=== PATIENT | male | born 1945 | race African-American/Black ===

== ENCOUNTER 2016-11-17 03:36 | Emergency (ER) | payer MEDICARE, OTHER ==
[2016-11-17] MEDS ORDERED: IPRATROPIUM 0.5 MG/2.5 ML NEBU INHALATION STA (04:00)
[2016-11-17] MEDS ORDERED: IPRATROPIUM-ALBUTEROL 3 ML NEB INHALATION STA (04:03)
[2016-11-17 04:12] LABS: Anisocytosis Slight; Basophils # (A) 0.1 k/uL (0-0.2); Basophils % (A) 1 %; CH 31.2; CHCM 30.9; Eosinophils # (A) 0.3 k/uL (0-0.7); Eosinophils % (A) 4 %; HDW 2.71; HGB 14.3 gm/dL (13.0-17.5); Hypochromasia Moderate; Luc # (Auto) 0.18; Luc % (Auto) 2; Lymphocytes # (A) 1.4 k/uL (1.0-4.8); Lymphocytes % (A) 15 %; MCH 30.3 pg (25.0-35.0); MCHC 29.7 g/dL (31.0-37.0); MCV 102.1 fL (80.0-100.0); Macrocytosis Moderate; Mean Platelet Volume 8.1; Monocytes # (A) 0.5 k/uL (0-1.0); Monocytes % (A) 5 %; Neutrophils # (A) 6.8 k/uL (1.3-7.7); Neutrophils % (A) 74 %; RDW 17.3 % (11.5-15.5); WBC 9.2 k/uL (3.8-10.6); WBC (Perox) 9.35
[2016-11-17 04:22] LABS: Calcium 8.9 mg/dL (8.4-10.2); Potassium 5.4 mmol/L (3.5-5.1); Total Bilirubin 0.5 mg/dL (0.2-1.3); Total Protein 6.3 g/dL (6.3-8.2)
[2016-11-17 04:39] LABS: INR 1.3 (<1.2); Partial Thromboplastin Time 23.4 sec (22.0-30.0); Prothrombin Time 12.8 sec (9.0-12.0)
--- NOTE | 2016-11-17 04:58 | XR ---
EXAM: XR Chest, 2 Views CLINICAL HISTORY: Reason: difficulty breathing TECHNIQUE: Frontal and lateral views of the chest. COMPARISON: 12/28/15 FINDINGS: Lungs: Suspect minimal airspace opacities in both lungs, suggest pulmonary edema. Pleural space: Unremarkable. No pneumothorax. Heart: Suspect pulmonary artery hypertension.. No cardiomegaly. Left pacer is again noted. Mediastinum: Unremarkable. Bones/joints: Unremarkable. IMPRESSION: 1. Suspect minimal airspace opacities in both lungs, suggest pulmonary edema. 2. Suspect pulmonary artery hypertension.
[2016-11-17 05:02] LABS: Creatine Kinase MB 12.9 ng/mL (0.0-2.4); Troponin I 0.119 ng/mL (0.000-0.034)
[2016-11-17 05:03] VITALS: RESP 18
[2016-11-17] MEDS ORDERED: FUROSEMIDE 10 MG/ML 10 ML VIAL IV STA (05:12)
[2016-11-17] MEDS ORDERED: SPIRONOLACTONE 25 MG TAB PO STA (05:12)
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
[2016-11-17 06:30] VITALS: BP 155/92; PULSE 72
[2016-11-17] MEDS ORDERED: SODIUM POLYSTYRENE SULFONATE 15 GM/60 ML BOTTLE PO STA (06:34)
[2016-11-17 06:49] VITALS: TEMP 97.6
== END 2016-11-17 06:48 | disposition home or self-care (01) ==
LOC: EC 03:36
DX: I13.0 Hypertensive heart and chronic kidney disease with heart failure and stage 1 through stage 4 chronic kidney disease, or unspecified chronic kidney disease (principal); I50.9 Heart failure, unspecified; N18.3 Chronic kidney disease, stage 3 (moderate); E87.5 Hyperkalemia; R05 Cough; I48.91 Unspecified atrial fibrillation; I25.2 Old myocardial infarction; E03.9 Hypothyroidism, unspecified; F17.200 Nicotine dependence, unspecified, uncomplicated; Z82.49 Family history of ischemic heart disease and other diseases of the circulatory system; Z95.810 Presence of automatic (implantable) cardiac defibrillator; Z79.84 Long term (current) use of oral hypoglycemic drugs; Z79.899 Other long term (current) drug therapy
CPT/HCPCS: 36415; 94640; 93005; 83880; 80053; 82550; 82553; 84484; 85025; 85610; 85730; 71020; 99285; 96374; J1940

== ENCOUNTER 2016-11-20 07:15 | Inpatient (IN) | payer MEDICARE, OTHER ==
[2016-11-20] MEDS ORDERED: methylPREDNISolone SOD SUCCI 125 MG/2 ML VIAL IV STA (07:41)
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
[2016-11-20 07:55] LABS: Anisocytosis Slight; Basophils # (A) 0.1 k/uL (0-0.2); Basophils % (A) 1 %; CH 31.1; CHCM 29.8; Eosinophils # (A) 0.3 k/uL (0-0.7); Eosinophils % (A) 4 %; HCT 45.5 % (39.0-53.0); HDW 2.79; HGB 13.3 gm/dL (13.0-17.5); Hypochromasia Marked; Luc # (Auto) 0.17; Luc % (Auto) 2; Lymphocytes # (A) 1.2 k/uL (1.0-4.8); Lymphocytes % (A) 17 %; MCH 30.7 pg (25.0-35.0); MCHC 29.1 g/dL (31.0-37.0); MCV 105.5 fL (80.0-100.0); Macrocytosis Moderate; Mean Platelet Volume 8.2; Monocytes # (A) 0.4 k/uL (0-1.0); Monocytes % (A) 6 %; Neutrophils # (A) 5.4 k/uL (1.3-7.7); Neutrophils % (A) 72 %; RBC 4.31 m/uL (4.30-5.90); RDW 17.3 % (11.5-15.5); WBC 7.6 k/uL (3.8-10.6); WBC (Perox) 7.81
[2016-11-20 08:07] LABS: Calcium 8.6 mg/dL (8.4-10.2); Magnesium 1.7 mg/dL (1.6-2.3); Total Bilirubin 0.4 mg/dL (0.2-1.3); Total Protein 5.9 g/dL (6.3-8.2)
--- NOTE | 2016-11-20 08:09 | XR ---
EXAMINATION TYPE: XR chest 2V DATE OF EXAM: 11/20/2016 COMPARISON: 11/17/2016. HISTORY: Shortness of breath TECHNIQUE: Frontal and lateral views of the chest are obtained. FINDINGS: Patchy airspace disease is seen bilaterally with a gradient effect predominating centrally . Cardiomegaly and left-sided dual lead cardiac device are redemonstrated. No pleural effusions or pn eumothorax. IMPRESSION: Similar appearing patchy bibasilar opacities with findings suggestive of underlying pulm onary edema, similar to the prior.
[2016-11-20 08:10] LABS: INR 1.3 (<1.2); Partial Thromboplastin Time 24.5 sec (22.0-30.0); Prothrombin Time 12.7 sec (9.0-12.0)
[2016-11-20 08:16] LABS: Potassium 6.2 mmol/L (3.5-5.1)
[2016-11-20 08:39] LABS: Creatine Kinase MB 10.4 ng/mL (0.0-2.4); Troponin I 0.077 ng/mL (0.000-0.034)
[2016-11-20] MEDS ORDERED: SODIUM POLYSTYRENE SULFONATE 15 GM/60 ML BOTTLE PO ONE (10:47)
[2016-11-20] MEDS ORDERED: FUROSEMIDE 10 MG/ML 4 ML VIAL IV STA (10:47)
[2016-11-20] MEDS ORDERED: NITROGLYCERIN OINT 1 INCH/GM PACKET TOPICAL STA (10:48)
[2016-11-20] MEDS ORDERED: FUROSEMIDE 10 MG/ML 4 ML VIAL IV SCH (11:15)
[2016-11-20] MEDS: IPRATROPIUM-ALBUTEROL 3 ML NEB INHALATION SCH ×3 (11:48→19:28)
[2016-11-20] MEDS: FUROSEMIDE 10 MG/ML 4 ML VIAL IV SCH (16:11)
[2016-11-20] MEDS: CARVEDILOL 3.125 MG TAB PO SCH (17:27)
[2016-11-20] MEDS: NITROGLYCERIN OINT 1 INCH/GM PACKET TOPICAL SCH ×2 (17:27→21:00)
[2016-11-20] MEDS ORDERED: HYDROmorphone 1 MG/ML 1 ML SYRINGE IVP PRN (17:55)
[2016-11-20] MEDS ORDERED: TEMAZEPAM 15 MG CAP PO PRN (17:55)
[2016-11-20] MEDS ORDERED: ALPRAZolam 0.25 MG TAB PO PRN (17:55)
[2016-11-20] MEDS ORDERED: HYDROcodone/APAP 5-325MG 1 EACH TAB PO PRN (17:55)
[2016-11-20] MEDS ORDERED: SODIUM POLYSTYRENE SULFONATE 15 GM/60 ML BOTTLE PO STA (17:56)
[2016-11-20 18:48] LABS: Potassium 5.4 mmol/L (3.5-5.1)
[2016-11-20] MEDS: APIXABAN 2.5 MG TABLET PO SCH (20:58)
[2016-11-20] MEDS: AMIODARONE 200 MG TAB PO SCH (20:58)
[2016-11-20] MEDS: SODIUM CHLORIDE 0.9% 1,000 ML IV SCH (20:58)
--- NOTE | 2016-11-20 23:05 | HP ---
DATE OF SERVICE: 11/20/2016 CHIEF COMPLAINT: Shortness of breath. HISTORY OF PRESENT ILLNESS: This 71-year-old gentleman with a past medical history of multiple medical problems, including CHF, COPD, history of renal failure, being followed by a primary physician in the [place] area, presented to [facility] emergency room with shortness of breath 2 days ago. Patient was found to have CHF, acute exacerbation. Patient was recommended admission, but patient decided to go home. Because of increasing symptoms, including bilateral leg edema, the patient came back to [facility] and was admitted for further evaluation and treatment. Chest x-ray showed bibasilar opacities suggestive of pulmonary edema. There is no history of any fever, rigor or chills. No history of headache, loss of consciousness, seizures. PAST MEDICAL HISTORY: 1. History of CHF. Ejection fraction 30% to 35%. 2. History of COPD. 3. History of renal failure. Medications prior to admission include: 1. Pacerone 200 mg p.o. b.i.d. 2. Synthroid 50 mcg p.o. daily. 3. Coreg 3.125 mg p.o. b.i.d. 4. Eliquis 2.5 mg b.i.d. 5. Aldactone 25 mg t.i.d. ALLERGIES: NONE. FAMILY HISTORY: History of diabetes mellitus, myocardial infarction, renal disease. SOCIAL HISTORY: History of smoking. Occasional alcohol intake. REVIEW OF SYSTEMS: ENT: No diminished hearing. No diminished vision. CARVIOVASCULAR SYSTEM: As mentioned earlier. RESPIRATORY SYSTEM: As mentioned earlier. GI: No nausea, vomiting. : No dysuria, retention. NERVOUS SYSTEM: No numbness, weakness. ALLERGY/IMMUNOLOGY: No asthma, hayfever. MUSCULOSKELETAL: As mentioned earlier. HEMATOLOGY/ONCOLOGY: No history of anemia. ENDOCRINE: No history of diabetes, hypothyroidism. CONSTITUTIONAL: As mentioned earlier. DERMATOLOGY: Negative. RHEUMATOLOGY: Negative. PSYCHIATRY: As mentioned earlier. PHYSICAL EXAM: Patient is alert and oriented x3. Pulse is 73, blood pressure 146 /77, respiration 20, temperature 97.2, pulse ox 96% on room air. HEENT: Conjunctivae normal. NECK: No jugular venous distention. JVD not visible. CARDIOVASCULAR: S1, S2 muffled. RESPIRATORY: Breath sounds diminished at the bases. A few scattered rhonchi and crackles. ABDOMEN: Soft. Non-tender. No mass palpable. LEGS: Bilateral leg edema. NERVOUS SYSTEM: Higher functions as mentioned earlier. Cranial nerves intact. Moves all 4 limbs. No focal motor or sensory deficit. LYMPHATICS: No lymph node palpable in neck, axillae or groin. SKIN: No ulcer, rash, bleeding. LABS: Hemoglobin 13.3. INR is 1.3. Potassium 6.2. Creatinine is 2.23. Troponin 0.077. ASSESSMENT: 1. Shortness of breath with congestive heart failure, acute exacerbation, with acute on chronic systolic dysfunction; ejection fraction 30% to 35%. 2. Acute on chronic kidney disease. 3. Hyperkalemia secondary to acute renal failure. 4. Chronic kidney disease, stage III, history. 5. Increased MCV. 6. History of nicotine dependence. 7. Chronic obstructive pulmonary disease. 8. History of atrial fibrillation. 9. Hypertension. 10. Hyperlipidemia. 11. History of AICD. RECOMMENDATIONS AND DISCUSSION: In this 71-year-old gentleman who presented with multiple complex medical issues, we will monitor the patient closely, continue the current medications, continue with symptomatic treatment. Otherwise , at this time I would continue with the diuretics. I recommend Kayexalate and cardiology and nephrology evaluations. Resume the home medications. Smoking cessation has been recommended. We will follow the patient closely. Prognosis is guarded because of the multiple complex medical issues. Further recommendations to follow. See orders for further details. Medication reconciliation also will be performed. Recommend DVT prophylaxis as well as GI prophylaxis. Will hold the Aldactone currently. Low-potassium diet. MTDD
[2016-11-21] MEDS: FUROSEMIDE 10 MG/ML 4 ML VIAL IV SCH ×4 (00:20→23:36)
[2016-11-21 06:12] LABS: Anisocytosis Slight; Basophils % (A) 0 %; CH 30.9; CHCM 29.9; Eosinophils # (A) 0.1 k/uL (0-0.7); Eosinophils % (A) 0 %; HCT 46.2 % (39.0-53.0); HDW 2.72; HGB 13.4 gm/dL (13.0-17.5); Hypochromasia Marked; Luc # (Auto) 0.16; Luc % (Auto) 1; Lymphocytes % (A) 8 %; MCH 30.3 pg (25.0-35.0); MCHC 29.1 g/dL (31.0-37.0); MCV 104.2 fL (80.0-100.0); Macrocytosis Moderate; Mean Platelet Volume 8.4; Monocytes # (A) 0.5 k/uL (0-1.0); Monocytes % (A) 4 %; Neutrophils # (A) 10.5 k/uL (1.3-7.7); Neutrophils % (A) 86 %; RBC 4.43 m/uL (4.30-5.90); RDW 17.2 % (11.5-15.5); WBC 12.2 k/uL (3.8-10.6); WBC (Perox) 13.01
[2016-11-21] MEDS: LEVOTHYROXINE 50 MCG TAB PO SCH (06:30)
[2016-11-21] MEDS: PANTOPRAZOLE 40 MG TABLET PO SCH (06:30)
[2016-11-21] MEDS: CARVEDILOL 3.125 MG TAB PO SCH ×2 (06:30→17:09)
[2016-11-21 06:41] LABS: Potassium 5.5 mmol/L (3.5-5.1)
[2016-11-21] MEDS: APIXABAN 2.5 MG TABLET PO SCH ×2 (08:06→20:08)
[2016-11-21] MEDS: AMIODARONE 200 MG TAB PO SCH ×2 (08:06→20:08)
[2016-11-21] MEDS: NICOTINE 14MG/24HR PATCH TRANSDERM SCH ×2 (08:06→08:14)
[2016-11-21] MEDS: NITROGLYCERIN OINT 1 INCH/GM PACKET TOPICAL SCH ×4 (08:06→20:08)
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
[2016-11-21] MEDS: IPRATROPIUM-ALBUTEROL 3 ML NEB INHALATION SCH ×4 (09:35→20:06)
--- NOTE | 2016-11-21 10:00 | ECHOF ---
Referral Reason:chf MEASUREMENTS -------- HEIGHT: 182.9 cm WEIGHT: 112.0 kg BP: 130/62 RVIDd: 4.3 cm (< 3.3) IVSd: 1.2 cm (0.6 - 1.1) LVIDd: 5.5 cm (3.9 - 5.3) LVPWd: 1.3 cm (0.6 - 1.1) IVSs: 1.4 cm LVIDs: 4.8 cm LVPWs: 1.4 cm LAESV Index (A-L): 40.70 ml/m IVSd: 0.7 cm (0.6 - 1.1) LVIDd: 6.2 cm (3.9 - 5.3) LVPWd: 1.1 cm (0.6 - 1.1) IVSs: 1.0 cm LVIDs: 5.1 cm LVPWs: 1.8 cm EDV(Teich): 196 ml ESV(Teich): 125 ml EF(Teich): 36 % %FS: 18 % SV(Teich): 71 ml Ao Diam: 3.8 cm (2.0 - 3.7) AV Cusp: 1.7 cm (1.5 - 2.6) LA Diam: 3.8 cm (2.7 - 3.8) MV EXCURSION: 20.282 mm (> 18.000) MV EF SLOPE: 101 mm/s (70 - 150) EPSS: 1.5 cm MV E Alfonzo: 0.80 m/s MV DecT: 179 ms MV A Alfonzo: 0.38 m/s MV E/A Ratio: 2.09 RAP: 5.00 mmHg RVSP: 72.03 mmHg FINDINGS -------- Pacemaker This was a technically good study. There is mild concentric left ventricular hypertrophy. There is severe global hypokinesis of LV . Overall left ventricular systolic function is moderate-severely impaired with, an EF between 30 - 35 %. The right ventricle is mild to moderately enlarged. LA is severely dilated >40 ml/m2 RA appears enlarged. Aortic valve is trileaflet and is mildly thickened. Mild mitral regurgitation is present. Severe tricuspid regurgitation present. There is moderate to severe pulmonary hypertension. The right ventricular systolic pressure, as measured by Doppler, is 72.03mmHg. Pulmonic valve appears structurally normal. The aortic root size is normal. The pericardium is normal. CONCLUSIONS -------- 1. Pacemaker 2. Mild mitral regurgitation is present. 3. Severe tricuspid regurgitation present. 4. There is moderate to severe pulmonary hypertension. 5. The right ventricular systolic pressure, as measured by Doppler, is 72.03mmHg. 6. Pulmonic valve appears structurally normal. 7. The aortic root size is normal. 8. The pericardium is normal. 9. This was a technically good study. 10. There is mild concentric left ventricular hypertrophy. 11. There is severe global hypokinesis of LV . 12. Overall left ventricular systolic function is moderate-severely impaired with, an EF between 30 - 35 %. 13. The right ventricle is mild to moderately enlarged. 14. LA is severely dilated >40 ml/m2 15. RA appears enlarged. 16. Aortic valve is trileaflet and is mildly thickened. CUTTING TOOL SHARPENER: Norma Mack RDCS
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
[2016-11-21 11:43] VITALS: BMI 33.5
--- NOTE | 2016-11-21 15:46 | P.PN ---
Subjective Date of service 11/21/2016. Progress note being dictated for Dr. Rasmussen. Interval history: This a 71-year-old gentleman admitted with acute CHF exacerbation, acute on chronic renal failure and multiple other medical issues. Received Kayexalate with improvement in potassium, currently down to 5.5. Evaluated by cardiology and nephrology with recommendations noted. Diuresing well on Lasix IV push with 24-hour I&O reflecting a negative fluid balance. Increased wheezing today. Telemetry sinus rhythm with first-degree AV block. Echo reporting severe tricuspid regurgitation, moderate to severe pulmonary hypertension, severe global hypo-kinesis of LV, EF between 30 and 35%. Review of systems: HEENT: Denies headache or focal deficits. Denies any dizziness or lightheadedness. Respiratory: Positive for Exertional shortness of breath. Cardiac: Denies any chest pain, palpitations. GI: Denies any nausea, vomiting, or diarrhea. Denies any abdominal tenderness. : Denies any dysuria. Psychiatry: Denies any anxiety or depression. Active Medications Hydrocodone Bitart/Acetaminophen ([place] 5-325) 1 each PO Q6HR PRN PRN Reason: Pain Albuterol/Ipratropium (Duoneb 0.5 Mg-3 Mg/3 Ml Soln) 3 ml INHALATION RT-QID [facility] Last Admin: 11/21/16 12:25 Dose: Not Given Albuterol/Ipratropium (Duoneb 0.5 Mg-3 Mg/3 Ml Soln) 3 ml INHALATION RT-Q2H PRN PRN Reason: Shortness Of Breath Or Wheezing Alprazolam (Xanax) 0.25 mg PO TID PRN PRN Reason: Anxiety Amiodarone HCl (Cordarone) 200 mg PO BID [facility] Last Admin: 11/21/16 08:06 Dose: 200 mg Apixaban (Eliquis) 2.5 mg PO BID [facility] Last Admin: 11/21/16 08:06 Dose: 2.5 mg Carvedilol (Coreg) 3.125 mg PO BID-W/MEALS [facility] Last Admin: 11/21/16 06:30 Dose: 3.125 mg Furosemide (Lasix) 40 mg IV Q8HR [facility] Last Admin: 11/21/16 08:06 Dose: 40 mg Hydromorphone HCl (Dilaudid) 0.5 mg IVP Q6HR PRN PRN Reason: Severe Pain Sodium Chloride (Saline 0.9%) 1,000 mls @ 20 mls/hr IV .Q24H [facility] Last Admin: 11/20/16 20:58 Dose: Not Given Levothyroxine Sodium (Synthroid) 50 mcg PO 0630 [facility] Last Admin: 11/21/16 06:30 Dose: 50 mcg Nicotine (Habitrol 14mg/24hr Patch) 1 patch TRANSDERM DAILY [facility] Last Admin: 11/21/16 08:14 Dose: Not Given Nitroglycerin (Nitro-Bid Oint) 1 inch TOPICAL QID [facility] Last Admin: 11/21/16 12:24 Dose: 1 inch Pantoprazole Sodium (Protonix) 40 mg PO AC-BRKFST [facility] Last Admin: 11/21/16 06:30 Dose: 40 mg Temazepam (Restoril) 15 mg PO HS PRN PRN Reason: Insomnia Objective - Vital Signs Vital signs: Vital Signs Temp 96.9 F L 11/21/16 12:00 Pulse 59 L 11/21/16 12:00 Resp 20 11/21/16 12:00 BP 131/61 11/21/16 12:00 Pulse Ox 96 11/21/16 12:00 Intake & Output 11/20/16 11/21/16 11/21/16 18:59 06:59 18:59 Intake Total 240 Output Total 950 450 Balance 240 -950 -450 Weight 106.594 kg 112.2 kg 112.2 kg Intake: Intake, IV Titration 0 Amount Sodium Chloride 0.9% 1, 0 000 ml @ 20 mls/hr IV . Q24H [facility] Rx#:[id number] Oral 240 Output: Urine 950 450 Other: Voiding Method Urinal # Voids 1 - Exam PHYSICAL EXAM: VITAL SIGNS: As above GENERAL: [Sitting up in bed, no acute distress] HEENT: [Pupils equal conjunctiva normal.] NECK: [Supple, positive JVD] RESPIRATORY EFFORT:[ increased] LUNGS: [Bilateral bases diminished, scattered expiratory wheezing throughout] CARDIOVASCULAR[ regular S1 and S2, positive systolic murmur, no rubs or gallops , positive edema] GI: [Abdomen soft, nontender, positive bowel sounds.] PSYCH: [Alert and oriented -3, mood and affect normal.] NEURO: No focal deficits, moves all 4 extremities, strength and sensation grossly intact - Labs CBC & Chem 7: 11/21/16 05:56 11/21/16 05:56 Labs: Abnormal Lab Results - Last 24 Hours (Table) 11/20/16 11/20/16 11/20/16 Range/Units 14:13 18:24 18:24 WBC (3.8-10.6) k/uL MCV (80.0-100.0) fL MCHC (31.0-37.0) g/dL RDW (11.5-15.5) % Neutrophils # (1.3-7.7) k/uL Potassium 5.4 H (3.5-5.1) mmol/L BUN (9-20) mg/dL Creatinine (0.66-1.25) mg/dL Glucose (74-99) mg/dL Troponin I 0.054 H* 0.055 H* (0.000-0.034) ng/mL 11/21/16 11/21/16 Range/Units 05:56 05:56 WBC 12.2 H (3.8-10.6) k/uL MCV 104.2 H (80.0-100.0) fL MCHC 29.1 L (31.0-37.0) g/dL RDW 17.2 H (11.5-15.5) % Neutrophils # 10.5 H (1.3-7.7) k/uL Potassium 5.5 H (3.5-5.1) mmol/L BUN 46 H (9-20) mg/dL Creatinine 2.40 H (0.66-1.25) mg/dL Glucose 147 H (74-99) mg/dL Troponin I (0.000-0.034) ng/mL Assessment and Plan Plan: 1. Acute on chronic systolic CHF exacerbation, EF 30-35%. 2. [ Acute on chronic kidney disease, stage III]. 3. [ Hyperkalemia secondary to acute renal failure]. 4. [ COPD]. 5. Chronic paroxysmal atrial fibrillation 6. Moderate to severe pulmonary hypertension 7. Severe Tricuspid regurgitation Plan: Continue on current medication regime ,monitoring and symptomatic treatment. Continue diuresing with Lasix IV push. Maintain fluid restrictions. Close monitoring of electrolytes with repeat labs ordered for a.m. The impression and plan of care has been dictated as directed. : I performed a H&P examination of this patient and discussed the same with the dictator. I agree with the dictator's note. Any additional findings/opinions/ etc. will be noted.
[2016-11-21] MEDS: SODIUM CHLORIDE 0.9% 1,000 ML IV SCH (17:11)
[2016-11-22] MEDS: IPRATROPIUM-ALBUTEROL 3 ML NEB INHALATION PRN (03:54)
[2016-11-22 06:24] LABS: Anisocytosis Slight; Basophils # (A) 0.1 k/uL (0-0.2); Basophils % (A) 1 %; CH 30.9; CHCM 30.3; Eosinophils # (A) 0.3 k/uL (0-0.7); Eosinophils % (A) 3 %; HDW 2.65; HGB 14.2 gm/dL (13.0-17.5); Hypochromasia Moderate; Luc # (Auto) 0.19; Luc % (Auto) 2; Lymphocytes # (A) 1.9 k/uL (1.0-4.8); Lymphocytes % (A) 18 %; MCH 29.7 pg (25.0-35.0); MCHC 28.9 g/dL (31.0-37.0); MCV 102.8 fL (80.0-100.0); Macrocytosis Moderate; Monocytes # (A) 0.5 k/uL (0-1.0); Monocytes % (A) 5 %; Neutrophils # (A) 8.1 k/uL (1.3-7.7); Neutrophils % (A) 73 %; RBC 4.77 m/uL (4.30-5.90); RDW 16.9 % (11.5-15.5); WBC (Perox) 10.88
[2016-11-22 06:34] LABS: Calcium 9.2 mg/dL (8.4-10.2); Magnesium 1.4 mg/dL (1.6-2.3); Potassium 4.8 mmol/L (3.5-5.1)
[2016-11-22] MEDS: PANTOPRAZOLE 40 MG TABLET PO SCH (06:34)
[2016-11-22] MEDS: CARVEDILOL 3.125 MG TAB PO SCH ×2 (06:34→17:13)
[2016-11-22] MEDS: LEVOTHYROXINE 50 MCG TAB PO SCH (06:34)
[2016-11-22] MEDS: IPRATROPIUM-ALBUTEROL 3 ML NEB INHALATION SCH ×4 (07:35→20:56)
[2016-11-22] MEDS: FUROSEMIDE 10 MG/ML 4 ML VIAL IV SCH ×3 (10:01→19:56)
[2016-11-22] MEDS: APIXABAN 2.5 MG TABLET PO SCH ×2 (10:02→19:55)
[2016-11-22] MEDS: NICOTINE 14MG/24HR PATCH TRANSDERM SCH ×2 (10:03→10:10)
[2016-11-22] MEDS: NITROGLYCERIN OINT 1 INCH/GM PACKET TOPICAL SCH ×5 (10:03→19:56)
[2016-11-22] MEDS: AMIODARONE 200 MG TAB PO SCH ×2 (10:04→19:55)
--- NOTE | 2016-11-22 10:33 | P.PN ---
Subjective Patient is seen in follow-up for acute kidney injury on chronic kidney disease. Patient has chronic kidney disease stage III secondary to cardiorenal syndrome with baseline creatinine in the range of 2.1-2.4. Creatinine today is 2.3. Patient has systolic CHF with ejection fraction of 30-35% with severe tricuspid regurgitation. Patient presented with dyspnea and edema. Potassium level is down to 4.8 today with Aldactone being held. He is diuresing well. Edema is improving. Dyspnea is also improved. Oral intake is good. Vital signs are stable. General: The patient appeared well nourished and normally developed. HEENT: Head exam is unremarkable. Neck is without jugular venous distension. LUNGS: Lungs are clear to auscultation and percussion. Breath sounds decreased. HEART: Rate and Rhythm are regular. First and second heart sounds normal. No murmurs, rubs or gallops. ABDOMEN: Abdominal exam reveals normal bowel sounds. Non-tender and non- distended. No evidence of peritonitis. EXTREMITITES: 1+ edema. Objective - Vital Signs Vital signs: Vital Signs Temp 97.0 F L 11/22/16 00:00 Pulse 72 11/22/16 07:48 Resp 16 11/22/16 03:16 BP 120/63 11/22/16 03:16 Pulse Ox 99 11/22/16 03:16 Intake & Output 11/21/16 11/22/16 11/22/16 18:59 06:59 18:59 Intake Total 180 0 Output Total 450 750 Balance -450 -570 0 Weight 112.2 kg 109.9 kg Intake: Intake, IV Titration 180 Amount Sodium Chloride 0.9% 1, 180 000 ml @ 20 mls/hr IV . Q24H [facility] Rx#:[id number] Oral 0 Output: Urine 450 750 Other: # Voids 3 - Labs CBC & Chem 7: 11/22/16 05:57 11/22/16 05:57 Labs: Abnormal Lab Results - Last 24 Hours (Table) 11/22/16 11/22/16 Range/Units 05:57 05:57 WBC 11.0 H (3.8-10.6) k/uL MCV 102.8 H (80.0-100.0) fL MCHC 28.9 L (31.0-37.0) g/dL RDW 16.9 H (11.5-15.5) % Neutrophils # 8.1 H (1.3-7.7) k/uL BUN 55 H (9-20) mg/dL Creatinine 2.30 H (0.66-1.25) mg/dL Magnesium 1.4 L (1.6-2.3) mg/dL Assessment and Plan Plan: Assessment: #1. Chronic kidney disease stage III secondary to cardiorenal syndrome. Recent creatinine is in the range of 2.1-2.4. Prior urinalysis has been quite benign. #2. Hyperkalemia secondary to underlying chronic kidney disease and from the use of Aldactone. Improved with medical treatment. Blood sugars controlled. No evidence of metabolic acidosis. #3. Volume overload. Improving. #4. Systolic CHF with ejection fraction of 30-35% with severe tricuspid regurgitation. Plan: Continue Lasix 40 mg IV 3 times daily - can likely transition to oral tomorrow. Maintain low potassium diet and 1.2 L fluid restriction. Continue to hold Aldactone for now. Avoid nephrotoxic agents and hypotensive episodes. Repeat electrolytes in the morning.
[2016-11-22] MEDS: MAGNESIUM SULFATE-D5W PMX 1 GM in DEXTROSE/WATER 1 100ML.BAG IVPB SCH ×3 (11:42→14:25)
[2016-11-22] MEDS: SODIUM CHLORIDE 0.9% 1,000 ML IV SCH (11:47)
[2016-11-22] MEDS: INSULIN LISPRO (humaLOG) 300 UNIT/3 ML VIAL SQ SCH ×3 (12:43→21:12)
[2016-11-22] MEDS: methylPREDNISolone SOD SUCCI 125 MG/2 ML VIAL IV SCH ×3 (12:52→22:58)
[2016-11-22] MEDS: SYMBICORT 160-4.5 MCG INHALER INHALATION SCH ×2 (12:54→20:55)
--- NOTE | 2016-11-22 13:05 | P.PN ---
Subjective Principal diagnosis: CHF This is a pleasant 71-year-old -[place] gentleman with known history of hypertension, hyperlipidemia, nonischemic cardiomyopathy with prior AICD implantation, acute on chronic renal failure, who used to follow regularly with Dr. VC Scott in the office. He had recently moved to [place] to reside with his brother, and now is currently homeless. He presents to the hospital with symptoms of progressively worsening shortness of breath and edema. Chest x-ray on admission here reveals findings suggestive of underlying pulmonary edema. EKG shows a sinus bradycardia with a first-degree AV block and nonspecific ST-T wave changes. Blood pressure 130/60 with a heart rate in the 70s, 95% on room air. White blood cell count 7.6 on admission, 12.2 this morning. Platelet count 161, potassium 5.5, BUN 46, creatinine 2.4. Troponin 0.055. BNP 4860. Patient was initiated on IV Lasix in the emergency room. He has been diuresing . Continues to feel quite short of breath this morning. Positive PND and orthopnea. 11/22/2016 Patient seen and examined this morning, diuresing well on IV Lasix. Weight is down 3 kg today. WBC 11.0, hemoglobin 14.2, platelet count 150. Potassium 4.8 , BUN 55, creatinine 2.3. Magnesium level I.4. Objective - Vital Signs Vital signs: Vital Signs Temp 97.1 F L 11/22/16 11:37 Pulse 58 L 11/22/16 11:37 Resp 16 11/22/16 11:37 BP 114/66 11/22/16 11:37 Pulse Ox 95 11/22/16 11:37 Intake & Output 11/21/16 11/22/16 11/22/16 18:59 06:59 18:59 Intake Total 180 660 Output Total 450 750 Balance -450 -570 660 Weight 112.2 kg 109.9 kg Intake: IV 10 Invasive Line 1 10 Intake, IV Titration 180 Amount Sodium Chloride 0.9% 1, 180 000 ml @ 20 mls/hr IV . Q24H [facility] Rx#:[id number] Oral 650 Output: Urine 450 750 Other: # Voids 3 - Exam PHYSICAL EXAMINATION: HEENT: Head is atraumatic, normocephalic. Pupils equal, round. Neck is supple. There is no elevated jugular venous pressure. HEART EXAMINATION: S1 and S2 systolic murmur is heard. CHEST EXAMINATION: Lungs reveal improvement in bilateral wheezing, patient continues to have diminished air entry to the bases. ABDOMEN: Soft, nontender. Bowel sounds are heard. No organomegaly noted. EXTREMITIES: 2+ peripheral pulses with 1+ evidence of peripheral edema and no calf tenderness noted. NEUROLOGIC patient is awake, alert and oriented -3. . - Labs CBC & Chem 7: 11/22/16 05:57 11/22/16 05:57 Labs: Abnormal Lab Results - Last 24 Hours (Table) 11/22/16 11/22/16 Range/Units 05:57 05:57 WBC 11.0 H (3.8-10.6) k/uL MCV 102.8 H (80.0-100.0) fL MCHC 28.9 L (31.0-37.0) g/dL RDW 16.9 H (11.5-15.5) % Neutrophils # 8.1 H (1.3-7.7) k/uL BUN 55 H (9-20) mg/dL Creatinine 2.30 H (0.66-1.25) mg/dL Magnesium 1.4 L (1.6-2.3) mg/dL Assessment and Plan Plan: Assessment and plan #1 systolic congestive heart failure acute on chronic #2 nonischemic cardiomyopathy with prior AICD implantation #3 hypertension #4 acute on chronic kidney disease # 5 abnormal troponin, likely secondary to abnormal renal function #5 paroxysmal atrial fibrillation on Eliquis for anticoagulation #6 hyperlipidemia #7 COPD #8 prior CVA Plan Repeat echocardiogram with Doppler study was performed which revealed an ejection fraction of 30-35%. From cardiology's perspective, we will recommend to continue the patient on his current dose of IV Lasix. Continue to monitor intake and output along with daily weights and daily lytes BUN and creatinine. DNP note has been reviewed, I agree with a documented findings and plan of care. Patient was seen and examined.
[2016-11-22 13:22] LABS: Hemoglobin A1C 6.9 % (4.2-6.1)
[2016-11-22 16:45] LABS: Glucose,Whole Blood 166 mg/dL (75-99)
--- NOTE | 2016-11-22 17:14 | P.PN ---
Subjective Progress note being dictated for Dr. Rasmussen. 11/21/16 Interval history: This a 71-year-old gentleman admitted with acute CHF exacerbation, acute on chronic renal failure and multiple other medical issues. Received Kayexalate with improvement in potassium, currently down to 5.5. Evaluated by cardiology and nephrology with recommendations noted. Diuresing well on Lasix IV push with 24-hour I&O reflecting a negative fluid balance. Increased wheezing today. Telemetry sinus rhythm with first-degree AV block. Echo reporting severe tricuspid regurgitation, moderate to severe pulmonary hypertension, severe global hypo-kinesis of LV, EF between 30 and 35%. 11/22/16: Complains of shortness of breath, wheezing. Maintained on fluid restrictions, low potassium diet. Aldactone remains on hold with Potassium improved currently at 4.8. Diuresing well on Lasix IV push with 24-hour I&O reflecting a negative fluid balance. Magnesium 1.4, receiving supplements. Review of systems: HEENT: Denies headache or focal deficits. Denies any dizziness or lightheadedness. Respiratory: Complains of shortness of breath. Cardiac: Denies any chest pain, palpitations. GI: Denies any nausea, vomiting, or diarrhea. Denies any abdominal tenderness. : Denies any dysuria. Psychiatry: Denies any anxiety or depression. Active Medications Generic Name Dose Route Start Last Admin Trade Name Freq PRN Reason Stop Dose Admin Hydrocodone Bitart/Acetaminophen 1 each 11/20/16 17:55 11/22/16 11:51 Rena Lara 5-325 PO 1 each Q6HR PRN Administration Pain Albuterol/Ipratropium 3 ml 11/21/16 08:00 11/22/16 11:19 Duoneb 0.5 Mg-3 Mg/3 Ml Soln INHALATION 3 ml RT-QID [facility] Administration Albuterol/Ipratropium 3 ml 11/20/16 20:02 11/22/16 03:54 Duoneb 0.5 Mg-3 Mg/3 Ml Soln INHALATION 3 ml RT-Q2H PRN Administration Shortness Of Breath Or Wheezing Alprazolam 0.25 mg 11/20/16 17:55 Xanax PO TID PRN Anxiety Amiodarone HCl 200 mg 11/20/16 21:00 11/22/16 10:04 Cordarone PO 200 mg BID [facility] Administration Apixaban 2.5 mg 11/20/16 21:00 11/22/16 10:02 Eliquis PO 2.5 mg BID [facility] Administration Budesonide/Formoterol Fumarate 2 puff 11/22/16 13:00 11/22/16 12:54 Symbicort 160-4.5 Mcg Inhaler INHALATION Not Given RT-BID [facility] Carvedilol 3.125 mg 11/20/16 17:30 11/22/16 06:34 Coreg PO 3.125 mg BID-W/MEALS [facility] Administration Furosemide 40 mg 11/20/16 16:00 11/22/16 15:40 Lasix IV 40 mg Q8HR [facility] Administration Hydromorphone HCl 0.5 mg 11/20/16 17:55 Dilaudid IVP Q6HR PRN Severe Pain Sodium Chloride 1,000 mls @ 20 mls/hr 11/20/16 11:15 11/22/16 11:47 Saline 0.9% IV Not Given .Q24H [facility] Insulin Human Lispro 0 unit 11/22/16 12:30 11/22/16 12:43 Humalog SQ Not Given ACHS [facility] Protocol Levothyroxine Sodium 50 mcg 11/21/16 06:30 11/22/16 06:34 Synthroid PO 50 mcg 0630 [facility] Administration Methylprednisolone Sodium Succinate 60 mg 11/22/16 12:30 11/22/16 12:52 Solu-Medrol IV 60 mg Q6HR [facility] Administration Nicotine 1 patch 11/21/16 09:00 11/22/16 10:10 Habitrol 14mg/24hr Patch TRANSDERM Not Given DAILY [facility] Nitroglycerin 1 inch 11/20/16 18:00 11/22/16 11:47 Nitro-Bid Oint TOPICAL Not Given QID [facility] Pantoprazole Sodium 40 mg 11/21/16 07:30 11/22/16 06:34 Protonix PO 40 mg AC-BRKFST [facility] Administration Temazepam 15 mg 11/20/16 17:55 Restoril PO HS PRN Insomnia Objective - Vital Signs Vital signs: Vital Signs Temp 97.1 F L 11/22/16 11:37 Pulse 56 L 11/22/16 12:00 Resp 16 11/22/16 11:37 BP 114/66 11/22/16 11:37 Pulse Ox 95 11/22/16 11:37 Intake & Output 11/21/16 11/22/16 11/22/16 18:59 06:59 18:59 Intake Total 180 976 Output Total 450 750 475 Balance -450 -570 501 Weight 112.2 kg 109.9 kg Intake: IV 326 Invasive Line 1 10 Magnesium Sulfate-D5w Pmx 316 1 gm In Dextrose/Water 1 100ml.bag @ 100 mls/hr IVPB Q1H [facility] Rx#: [id number] Intake, IV Titration 180 Amount Sodium Chloride 0.9% 1, 180 000 ml @ 20 mls/hr IV . Q24H [facility] Rx#:[id number] Oral 650 Output: Urine 450 750 475 Other: # Voids 3 - Exam PHYSICAL EXAM: VITAL SIGNS: As above GENERAL: [Sitting up in bed, mild increased shortness of breath HEENT: [Pupils equal conjunctiva normal.] NECK: [Supple, positive JVD] RESPIRATORY EFFORT:[ increased] LUNGS: [Bilateral bases diminished, occasional expiratory wheezing scattered throughout] CARDIOVASCULAR[ regular S1 and S2, positive systolic murmur, no rubs or gallops , decreasing edema] GI: [Abdomen soft, nontender, positive bowel sounds.] PSYCH: [Alert and oriented -3, mood and affect normal.] NEURO: No focal deficits, moves all 4 extremities, strength and sensation grossly intact - Labs CBC & Chem 7: 11/22/16 05:57 11/22/16 05:57 Labs: Abnormal Lab Results - Last 24 Hours (Table) 11/22/16 11/22/16 11/22/16 Range/Units 05:57 05:57 05:57 WBC 11.0 H (3.8-10.6) k/uL MCV 102.8 H (80.0-100.0) fL MCHC 28.9 L (31.0-37.0) g/dL RDW 16.9 H (11.5-15.5) % Neutrophils # 8.1 H (1.3-7.7) k/uL BUN 55 H (9-20) mg/dL Creatinine 2.30 H (0.66-1.25) mg/dL POC Glucose (mg/dL) (75-99) mg/dL Hemoglobin A1c 6.9 H (4.2-6.1) % Magnesium 1.4 L (1.6-2.3) mg/dL 11/22/16 Range/Units 16:42 WBC (3.8-10.6) k/uL MCV (80.0-100.0) fL MCHC (31.0-37.0) g/dL RDW (11.5-15.5) % Neutrophils # (1.3-7.7) k/uL BUN (9-20) mg/dL Creatinine (0.66-1.25) mg/dL POC Glucose (mg/dL) 166 H (75-99) mg/dL Hemoglobin A1c (4.2-6.1) % Magnesium (1.6-2.3) mg/dL Assessment and Plan Plan: 1. Acute on chronic systolic CHF exacerbation, EF 30-35%. 2. [ Acute on chronic kidney disease, stage III]. 3. [ Hyperkalemia secondary to acute renal failure]. 4. [ Acute COPD exacerbation]. 5. Chronic paroxysmal atrial fibrillation 6. Moderate to severe pulmonary hypertension 7. Severe Tricuspid regurgitation Plan: Continue on current medication regime , Lasix, monitoring and symptomatic treatment. Maintain fluid restrictions. Close monitoring of electrolytes with repeat labs ordered for a.m. Symbicort, steroids, added to med regime in addition to nebulized bronchodilators scheduled and prn. Further recommendations to follow. The impression and plan of care has been dictated as directed. : I performed a H&P examination of this patient and discussed the same with the dictator. I agree with the dictator's note. Any additional findings/opinions/ etc. will be noted.
[2016-11-22 20:31] LABS: Glucose,Whole Blood 252 mg/dL (75-99)
[2016-11-23] MEDS: IPRATROPIUM-ALBUTEROL 3 ML NEB INHALATION PRN (05:37)
[2016-11-23 05:48] LABS: Glucose,Whole Blood 222 mg/dL (75-99)
[2016-11-23 06:26] LABS: Glucose,Whole Blood 249 mg/dL (75-99)
[2016-11-23] MEDS: LEVOTHYROXINE 50 MCG TAB PO SCH (06:32)
[2016-11-23] MEDS: CARVEDILOL 3.125 MG TAB PO SCH ×2 (06:32→18:00)
[2016-11-23] MEDS: methylPREDNISolone SOD SUCCI 125 MG/2 ML VIAL IV SCH ×2 (06:32→12:30)
[2016-11-23] MEDS: INSULIN LISPRO (humaLOG) 300 UNIT/3 ML VIAL SQ SCH ×4 (06:34→21:02)
[2016-11-23] MEDS: PANTOPRAZOLE 40 MG TABLET PO SCH (06:36)
[2016-11-23 06:46] LABS: Calcium 8.8 mg/dL (8.4-10.2); Magnesium 1.8 mg/dL (1.6-2.3); Potassium 5.3 mmol/L (3.5-5.1)
[2016-11-23 06:59] LABS: Basophils % (A) 0 %; CH 30.2; CHCM 30.4; Eosinophils % (A) 0 %; HCT 48.3 % (39.0-53.0); HDW 2.56; HGB 14.8 gm/dL (13.0-17.5); Hypochromasia Moderate; Luc # (Auto) 0.05; Luc % (Auto) 1; Lymphocytes # (A) 0.9 k/uL (1.0-4.8); Lymphocytes % (A) 9 %; MCH 30.7 pg (25.0-35.0); MCHC 30.7 g/dL (31.0-37.0); MCV 100.2 fL (80.0-100.0); Macrocytosis Slight; Mean Platelet Volume 7.6; Monocytes # (A) 0.2 k/uL (0-1.0); Monocytes % (A) 2 %; Neutrophils # (A) 9.5 k/uL (1.3-7.7); Neutrophils % (A) 89 %; RBC 4.82 m/uL (4.30-5.90); RDW 15.9 % (11.5-15.5); WBC 10.6 k/uL (3.8-10.6)
[2016-11-23] MEDS: NICOTINE 14MG/24HR PATCH TRANSDERM SCH ×2 (08:10→08:57)
[2016-11-23] MEDS: APIXABAN 2.5 MG TABLET PO SCH ×2 (08:10→20:09)
[2016-11-23] MEDS: AMIODARONE 200 MG TAB PO SCH ×2 (08:10→20:09)
[2016-11-23] MEDS: NITROGLYCERIN OINT 1 INCH/GM PACKET TOPICAL SCH ×4 (08:10→20:09)
[2016-11-23] MEDS: FUROSEMIDE 10 MG/ML 4 ML VIAL IV SCH ×3 (08:10→20:09)
[2016-11-23] MEDS: IPRATROPIUM-ALBUTEROL 3 ML NEB INHALATION SCH ×4 (09:15→20:23)
[2016-11-23] MEDS: SYMBICORT 160-4.5 MCG INHALER INHALATION SCH ×3 (09:15→20:24)
--- NOTE | 2016-11-23 11:07 | P.PN ---
Subjective Patient is seen in follow-up for acute kidney injury on chronic kidney disease. Patient has chronic kidney disease stage III secondary to cardiorenal syndrome with baseline creatinine in the range of 2.0-2.4. Creatinine today is 1.99. Patient has systolic CHF with ejection fraction of 30-35% with severe tricuspid regurgitation. Patient presented with dyspnea and edema. He is diuresing well. Edema is improving. Dyspnea is also improved. Oral intake is good. Vital signs are stable. General: The patient appeared well nourished and normally developed. HEENT: Head exam is unremarkable. Neck is without jugular venous distension. LUNGS: Lungs are clear to auscultation and percussion. Breath sounds decreased. HEART: Rate and Rhythm are regular. First and second heart sounds normal. No murmurs, rubs or gallops. ABDOMEN: Abdominal exam reveals normal bowel sounds. Non-tender and non- distended. No evidence of peritonitis. EXTREMITITES: Trace edema. Objective - Vital Signs Vital signs: Vital Signs Temp 97.4 F L 11/23/16 08:20 Pulse 63 11/23/16 08:20 Resp 18 11/23/16 08:20 BP 128/61 11/23/16 08:20 Pulse Ox 93 L 11/23/16 08:20 Intake & Output 11/22/16 11/23/16 11/23/16 18:59 06:59 18:59 Intake Total 1213 240 240 Output Total 475 950 500 Balance 738 710 -260 Weight 109 kg Intake: IV 326 Invasive Line 1 10 Magnesium Sulfate-D5w Pmx 316 1 gm In Dextrose/Water 1 100ml.bag @ 100 mls/hr IVPB Q1H [facility] Rx#: [id number] Intake, IV Titration 0 Amount Sodium Chloride 0.9% 1, 0 000 ml @ 20 mls/hr IV . Q24H [facility] Rx#:[id number] Oral 887 240 240 Output: Urine 475 950 500 Other: Voiding Method Urinal # Voids 1 - Labs CBC & Chem 7: 11/23/16 06:13 11/23/16 06:13 Labs: Abnormal Lab Results - Last 24 Hours (Table) 11/22/16 11/22/16 11/22/16 Range/Units 05:57 16:42 20:28 MCV (80.0-100.0) fL MCHC (31.0-37.0) g/dL RDW (11.5-15.5) % Neutrophils # (1.3-7.7) k/uL Lymphocytes # (1.0-4.8) k/uL Sodium (137-145) mmol/L Potassium (3.5-5.1) mmol/L BUN (9-20) mg/dL Creatinine (0.66-1.25) mg/dL Glucose (74-99) mg/dL POC Glucose (mg/dL) 166 H 252 H (75-99) mg/dL Hemoglobin A1c 6.9 H (4.2-6.1) % 11/23/16 11/23/16 11/23/16 Range/Units 05:46 06:13 06:13 MCV 100.2 H (80.0-100.0) fL MCHC 30.7 L (31.0-37.0) g/dL RDW 15.9 H (11.5-15.5) % Neutrophils # 9.5 H (1.3-7.7) k/uL Lymphocytes # 0.9 L (1.0-4.8) k/uL Sodium 135 L (137-145) mmol/L Potassium 5.3 H (3.5-5.1) mmol/L BUN 58 H (9-20) mg/dL Creatinine 1.99 H (0.66-1.25) mg/dL Glucose 253 H (74-99) mg/dL POC Glucose (mg/dL) 222 H (75-99) mg/dL Hemoglobin A1c (4.2-6.1) % 11/23/16 Range/Units 06:16 MCV (80.0-100.0) fL MCHC (31.0-37.0) g/dL RDW (11.5-15.5) % Neutrophils # (1.3-7.7) k/uL Lymphocytes # (1.0-4.8) k/uL Sodium (137-145) mmol/L Potassium (3.5-5.1) mmol/L BUN (9-20) mg/dL Creatinine (0.66-1.25) mg/dL Glucose (74-99) mg/dL POC Glucose (mg/dL) 249 H (75-99) mg/dL Hemoglobin A1c (4.2-6.1) % Assessment and Plan Plan: Assessment: #1. Chronic kidney disease stage III secondary to cardiorenal syndrome. Recent creatinine is in the range of 2.1-2.4. Prior urinalysis has been quite benign. GFR at baseline. #2. Hyperkalemia secondary to underlying chronic kidney disease and from the use of Aldactone. Improved with medical treatment. Blood sugars 250 this morning with potassium level of 5.3. No evidence of metabolic acidosis. #3. Volume overload. Improving. #4. Systolic CHF with ejection fraction of 30-35% with severe tricuspid regurgitation. Plan: Continue Lasix 40 mg IV 3 times daily - can transition to 40 mg orally twice daily upon discharge. Maintain low potassium diet and 1.2 L fluid restriction. Continue to hold Aldactone for now. Avoid nephrotoxic agents and hypotensive episodes. Repeat electrolytes in the morning.
[2016-11-23] MEDS: SODIUM CHLORIDE 0.9% 1,000 ML IV SCH (11:31)
[2016-11-23 11:47] LABS: Glucose,Whole Blood 263 mg/dL (75-99)
[2016-11-23] MEDS ORDERED: INSULIN REGULAR BOLUS (FROM DRIP BAG) IV ONE (12:07)
--- NOTE | 2016-11-23 12:10 | P.PN ---
Subjective Principal diagnosis: CHF This is a pleasant 71-year-old -[place] gentleman with known history of hypertension, hyperlipidemia, nonischemic cardiomyopathy with prior AICD implantation, acute on chronic renal failure, who used to follow regularly with Dr. VC Scott in the office. He had recently moved to [place] to reside with his brother, and now is currently homeless. He presents to the hospital with symptoms of progressively worsening shortness of breath and edema. Chest x-ray on admission here reveals findings suggestive of underlying pulmonary edema. EKG shows a sinus bradycardia with a first-degree AV block and nonspecific ST-T wave changes. Blood pressure 130/60 with a heart rate in the 70s, 95% on room air. White blood cell count 7.6 on admission, 12.2 this morning. Platelet count 161, potassium 5.5, BUN 46, creatinine 2.4. Troponin 0.055. BNP 4860. Patient was initiated on IV Lasix in the emergency room. He has been diuresing . Continues to feel quite short of breath this morning. Positive PND and orthopnea. 11/22/2016 Patient seen and examined this morning, diuresing well on IV Lasix. Weight is down 3 kg today. WBC 11.0, hemoglobin 14.2, platelet count 150. Potassium 4.8 , BUN 55, creatinine 2.3. Magnesium level I.4. 11/23/2016 Patient seen and examined this morning, continues to diurese well. Feeling much better overall. Potassium 5.3 today, creatinine 1.9, a serum level I.8. Objective - Vital Signs Vital signs: Vital Signs Temp 97.6 F 11/23/16 11:51 Pulse 63 11/23/16 11:51 Resp 18 11/23/16 11:51 BP 138/63 11/23/16 11:51 Pulse Ox 94 L 11/23/16 11:51 Intake & Output 11/22/16 11/23/16 11/23/16 18:59 06:59 18:59 Intake Total 1213 240 240 Output Total 475 452 500 Balance 560 -723 -348 Weight 109 kg Intake: IV 326 Invasive Line 1 10 Magnesium Sulfate-D5w Pmx 316 1 gm In Dextrose/Water 1 100ml.bag @ 100 mls/hr IVPB Q1H [facility] Rx#: [id number] Intake, IV Titration 0 Amount Sodium Chloride 0.9% 1, 0 000 ml @ 20 mls/hr IV . Q24H [facility] Rx#:[id number] Oral 887 240 240 Output: Urine 475 950 500 Other: Voiding Method Urinal # Voids 1 - Exam PHYSICAL EXAMINATION: HEENT: Head is atraumatic, normocephalic. Pupils equal, round. Neck is supple. There is no elevated jugular venous pressure. HEART EXAMINATION: S1 and S2 systolic murmur is heard. CHEST EXAMINATION: Lungs reveal improvement in bilateral wheezing, patient continues to have diminished air entry to the bases. ABDOMEN: Soft, nontender. Bowel sounds are heard. No organomegaly noted. EXTREMITIES: 2+ peripheral pulses with 1+ evidence of peripheral edema and no calf tenderness noted. NEUROLOGIC patient is awake, alert and oriented -3. . - Labs CBC & Chem 7: 11/23/16 06:13 11/23/16 06:13 Labs: Abnormal Lab Results - Last 24 Hours (Table) 11/22/16 11/22/16 11/22/16 Range/Units 05:57 16:42 20:28 MCV (80.0-100.0) fL MCHC (31.0-37.0) g/dL RDW (11.5-15.5) % Neutrophils # (1.3-7.7) k/uL Lymphocytes # (1.0-4.8) k/uL Sodium (137-145) mmol/L Potassium (3.5-5.1) mmol/L BUN (9-20) mg/dL Creatinine (0.66-1.25) mg/dL Glucose (74-99) mg/dL POC Glucose (mg/dL) 166 H 252 H (75-99) mg/dL Hemoglobin A1c 6.9 H (4.2-6.1) % 11/23/16 11/23/16 11/23/16 Range/Units 05:46 06:13 06:13 MCV 100.2 H (80.0-100.0) fL MCHC 30.7 L (31.0-37.0) g/dL RDW 15.9 H (11.5-15.5) % Neutrophils # 9.5 H (1.3-7.7) k/uL Lymphocytes # 0.9 L (1.0-4.8) k/uL Sodium 135 L (137-145) mmol/L Potassium 5.3 H (3.5-5.1) mmol/L BUN 58 H (9-20) mg/dL Creatinine 1.99 H (0.66-1.25) mg/dL Glucose 253 H (74-99) mg/dL POC Glucose (mg/dL) 222 H (75-99) mg/dL Hemoglobin A1c (4.2-6.1) % 11/23/16 11/23/16 Range/Units 06:16 11:45 MCV (80.0-100.0) fL MCHC (31.0-37.0) g/dL RDW (11.5-15.5) % Neutrophils # (1.3-7.7) k/uL Lymphocytes # (1.0-4.8) k/uL Sodium (137-145) mmol/L Potassium (3.5-5.1) mmol/L BUN (9-20) mg/dL Creatinine (0.66-1.25) mg/dL Glucose (74-99) mg/dL POC Glucose (mg/dL) 249 H 263 H (75-99) mg/dL Hemoglobin A1c (4.2-6.1) % Assessment and Plan Plan: Assessment and plan #1 systolic congestive heart failure acute on chronic #2 nonischemic cardiomyopathy with prior AICD implantation #3 hypertension #4 acute on chronic kidney disease # 5 abnormal troponin, likely secondary to abnormal renal function #5 paroxysmal atrial fibrillation on Eliquis for anticoagulation #6 hyperlipidemia #7 COPD #8 prior CVA Plan We will repeat a chest x-ray tomorrow morning, continue current dose of IV Lasix. DNP note has been reviewed, I agree with a documented findings and plan of care. Patient was seen and examined.
[2016-11-23] MEDS ORDERED: INSULIN REGULAR 100 UNIT in SODIUM CHLORIDE 0.9% 100 ML IV SCH (12:15)
[2016-11-23 13:40] LABS: Glucose,Whole Blood 266 mg/dL (75-99)
[2016-11-23 14:25] LABS: Glucose,Whole Blood 198 mg/dL (75-99)
[2016-11-23 16:38] LABS: Glucose,Whole Blood 69 mg/dL (75-99)
[2016-11-23 16:38] LABS: Glucose,Whole Blood 67 mg/dL (75-99)
--- NOTE | 2016-11-23 16:46 | P.PN ---
Subjective Progress note being dictated for Dr. Rasmussen. 11/21/16 Interval history: This a 71-year-old gentleman admitted with acute CHF exacerbation, acute on chronic renal failure and multiple other medical issues. Received Kayexalate with improvement in potassium, currently down to 5.5. Evaluated by cardiology and nephrology with recommendations noted. Diuresing well on Lasix IV push with 24-hour I&O reflecting a negative fluid balance. Increased wheezing today. Telemetry sinus rhythm with first-degree AV block. Echo reporting severe tricuspid regurgitation, moderate to severe pulmonary hypertension, severe global hypo-kinesis of LV, EF between 30 and 35%. 11/22/16: Maintained on fluid restrictions, steroids, nebulized bronchodilators. Wheezing, shortness of breath, improving. Diuresing well on Lasix IV push with 24-hour I&O reflecting a negative fluid balance. Renal function improving. Magnesium 1.8, potassium 5.3. Elevated blood sugars, hemoglobin A1c 6.9. Review of systems: HEENT: Denies headache or focal deficits. Denies any dizziness or lightheadedness. Respiratory: shortness of breath improving, nonproductive cough.. Cardiac: Denies any chest pain, palpitations. GI: Good diet intake, Denies any nausea, vomiting, or diarrhea. : Denies any dysuria. Psychiatry: Denies any anxiety or depression. Active Medications Generic Name Dose Route Start Last Admin Trade Name Freq PRN Reason Stop Dose Admin Hydrocodone Bitart/Acetaminophen 1 each 11/20/16 17:55 11/22/16 11:51 [place] 5-325 PO 1 each Q6HR PRN Administration Pain Albuterol/Ipratropium 3 ml 11/21/16 08:00 11/22/16 11:19 Duoneb 0.5 Mg-3 Mg/3 Ml Soln INHALATION 3 ml RT-QID [facility] Administration Albuterol/Ipratropium 3 ml 11/20/16 20:02 11/22/16 03:54 Duoneb 0.5 Mg-3 Mg/3 Ml Soln INHALATION 3 ml RT-Q2H PRN Administration Shortness Of Breath Or Wheezing Alprazolam 0.25 mg 11/20/16 17:55 Xanax PO TID PRN Anxiety Amiodarone HCl 200 mg 11/20/16 21:00 11/22/16 10:04 Cordarone PO 200 mg BID [facility] Administration Apixaban 2.5 mg 11/20/16 21:00 11/22/16 10:02 Eliquis PO 2.5 mg BID [facility] Administration Budesonide/Formoterol Fumarate 2 puff 11/22/16 13:00 11/22/16 12:54 Symbicort 160-4.5 Mcg Inhaler INHALATION Not Given RT-BID [facility] Carvedilol 3.125 mg 11/20/16 17:30 11/22/16 06:34 Coreg PO 3.125 mg BID-W/MEALS [facility] Administration Furosemide 40 mg 11/20/16 16:00 11/22/16 15:40 Lasix IV 40 mg Q8HR [facility] Administration Hydromorphone HCl 0.5 mg 11/20/16 17:55 Dilaudid IVP Q6HR PRN Severe Pain Sodium Chloride 1,000 mls @ 20 mls/hr 11/20/16 11:15 11/22/16 11:47 Saline 0.9% IV Not Given .Q24H [facility] Insulin Human Lispro 0 unit 11/22/16 12:30 11/22/16 12:43 Humalog SQ Not Given ACHS [facility] Protocol Levothyroxine Sodium 50 mcg 11/21/16 06:30 11/22/16 06:34 Synthroid PO 50 mcg 0630 [facility] Administration Methylprednisolone Sodium Succinate 60 mg 11/22/16 12:30 11/22/16 12:52 Solu-Medrol IV 60 mg Q6HR [facility] Administration Nicotine 1 patch 11/21/16 09:00 11/22/16 10:10 Habitrol 14mg/24hr Patch TRANSDERM Not Given DAILY [facility] Nitroglycerin 1 inch 11/20/16 18:00 11/22/16 11:47 Nitro-Bid Oint TOPICAL Not Given QID [facility] Pantoprazole Sodium 40 mg 11/21/16 07:30 11/22/16 06:34 Protonix PO 40 mg AC-BRKFST [facility] Administration Temazepam 15 mg 11/20/16 17:55 Restoril PO HS PRN Insomnia Objective - Vital Signs Vital signs: Vital Signs Temp 97.6 F 11/23/16 11:51 Pulse 63 11/23/16 11:51 Resp 18 11/23/16 11:51 BP 138/63 11/23/16 11:51 Pulse Ox 94 L 11/23/16 11:51 Intake & Output 11/22/16 11/23/16 11/23/16 18:59 06:59 18:59 Intake Total 1213 240 252.5 Output Total 475 950 500 Balance 738 -710 -247.5 Weight 109 kg Intake: IV 326 Invasive Line 1 10 Magnesium Sulfate-D5w Pmx 316 1 gm In Dextrose/Water 1 100ml.bag @ 100 mls/hr IVPB Q1H [facility] Rx#: [id number] Intake, IV Titration 0 12.5 Amount Insulin Regular 100 unit 12.5 In Sodium Chloride 0.9% 100 ml @ Titrate IV .Q0M [facility] Rx#:[id number] Sodium Chloride 0.9% 1, 0 000 ml @ 20 mls/hr IV . Q24H [facility] Rx#:[id number] Oral 887 240 240 Output: Urine 475 950 500 Other: Voiding Method Urinal # Voids 1 - Exam PHYSICAL EXAM: VITAL SIGNS: As above GENERAL: [Sitting up at side of bed, no acute distress HEENT: [Pupils equal conjunctiva normal. Oral mucosa moist] NECK: [Supple, no JVD] RESPIRATORY EFFORT:[ normal] LUNGS: [Bilateral bases diminished, minimal expiratory wheezing scattered throughout] CARDIOVASCULAR[ regular S1 and S2, positive systolic murmur, no rubs or gallops , decreasing edema] GI: [Abdomen soft, nontender, positive bowel sounds.] PSYCH: [Alert and oriented -3, mood and affect normal.] NEURO: No focal deficits, moves all 4 extremities, strength and sensation grossly intact - Labs CBC & Chem 7: 11/23/16 06:13 11/23/16 06:13 Labs: Abnormal Lab Results - Last 24 Hours (Table) 11/22/16 11/22/16 11/23/16 Range/Units 16:42 20:28 05:46 MCV (80.0-100.0) fL MCHC (31.0-37.0) g/dL RDW (11.5-15.5) % Neutrophils # (1.3-7.7) k/uL Lymphocytes # (1.0-4.8) k/uL Sodium (137-145) mmol/L Potassium (3.5-5.1) mmol/L BUN (9-20) mg/dL Creatinine (0.66-1.25) mg/dL Glucose (74-99) mg/dL POC Glucose (mg/dL) 166 H 252 H 222 H (75-99) mg/dL 11/23/16 11/23/16 11/23/16 Range/Units 06:13 06:13 06:16 MCV 100.2 H (80.0-100.0) fL MCHC 30.7 L (31.0-37.0) g/dL RDW 15.9 H (11.5-15.5) % Neutrophils # 9.5 H (1.3-7.7) k/uL Lymphocytes # 0.9 L (1.0-4.8) k/uL Sodium 135 L (137-145) mmol/L Potassium 5.3 H (3.5-5.1) mmol/L BUN 58 H (9-20) mg/dL Creatinine 1.99 H (0.66-1.25) mg/dL Glucose 253 H (74-99) mg/dL POC Glucose (mg/dL) 249 H (75-99) mg/dL 11/23/16 11/23/16 11/23/16 Range/Units 11:45 13:38 14:23 MCV (80.0-100.0) fL MCHC (31.0-37.0) g/dL RDW (11.5-15.5) % Neutrophils # (1.3-7.7) k/uL Lymphocytes # (1.0-4.8) k/uL Sodium (137-145) mmol/L Potassium (3.5-5.1) mmol/L BUN (9-20) mg/dL Creatinine (0.66-1.25) mg/dL Glucose (74-99) mg/dL POC Glucose (mg/dL) 263 H 266 H 198 H (75-99) mg/dL Assessment and Plan Plan: 1. Acute on chronic systolic CHF exacerbation, EF 30-35%. 2. [ Acute on chronic kidney disease, stage III]. 3. [ Hyperkalemia secondary to acute renal failure]. 4. [ Acute COPD exacerbation]. 5. Chronic paroxysmal atrial fibrillation 6. Moderate to severe pulmonary hypertension 7. Severe Tricuspid regurgitation Plan: Continue on current medication regime , Lasix, steroids, nebulized bronchodilators ,monitoring and symptomatic treatment. Maintain fluid restrictions. Close monitoring of electrolytes with repeat labs ordered for a.m. Hyperglycemia, insulin drip initiated. Further recommendations to follow. The impression and plan of care has been dictated as directed. : I performed a H&P examination of this patient and discussed the same with the dictator. I agree with the dictator's note. Any additional findings/opinions/ etc. will be noted.
[2016-11-23 17:05] LABS: Glucose,Whole Blood 76 mg/dL (75-99)
[2016-11-23 17:46] LABS: Glucose,Whole Blood 118 mg/dL (75-99)
[2016-11-23] MEDS ORDERED: INSULIN GLARGINE 100 UNIT/ML 10 ML VIAL SQ SCH (21:00)
[2016-11-23 21:02] LABS: Glucose,Whole Blood 265 mg/dL (75-99)
[2016-11-23 22:19] LABS: Hemoglobin A1C 7.1 % (4.2-6.1)
[2016-11-23] MEDS: methylPREDNISolone SOD SUCCI 40 MG/ML 1 ML VIAL IV SCH (23:28)
[2016-11-24 05:56] LABS: Anisocytosis Slight; Basophils % (A) 0 %; CH 31.1; CHCM 30.8; Eosinophils # (A) 0.1 k/uL (0-0.7); Eosinophils % (A) 0 %; HCT 53.2 % (39.0-53.0); HDW 2.58; HGB 15.9 gm/dL (13.0-17.5); Hypochromasia Moderate; Luc # (Auto) 0.07; Luc % (Auto) 0; Lymphocytes % (A) 6 %; MCH 30.4 pg (25.0-35.0); MCHC 29.9 g/dL (31.0-37.0); MCV 101.9 fL (80.0-100.0); Macrocytosis Slight; Mean Platelet Volume 8.5; Monocytes # (A) 0.3 k/uL (0-1.0); Monocytes % (A) 2 %; Neutrophils # (A) 16.2 k/uL (1.3-7.7); Neutrophils % (A) 92 %; RBC 5.22 m/uL (4.30-5.90); RDW 16.7 % (11.5-15.5); WBC 17.5 k/uL (3.8-10.6); WBC (Perox) 17.01
[2016-11-24 06:10] LABS: Calcium 9.1 mg/dL (8.4-10.2); Magnesium 1.8 mg/dL (1.6-2.3); Potassium 5.6 mmol/L (3.5-5.1)
[2016-11-24 06:13] LABS: Glucose,Whole Blood 148 mg/dL (75-99)
[2016-11-24] MEDS: PANTOPRAZOLE 40 MG TABLET PO SCH (06:49)
[2016-11-24] MEDS: LEVOTHYROXINE 50 MCG TAB PO SCH (06:49)
[2016-11-24] MEDS: CARVEDILOL 3.125 MG TAB PO SCH ×2 (06:49→17:06)
[2016-11-24] MEDS: INSULIN LISPRO (humaLOG) 300 UNIT/3 ML VIAL SQ SCH ×4 (06:49→20:49)
--- NOTE | 2016-11-24 07:28 | XR ---
EXAMINATION TYPE: XR chest 2V DATE OF EXAM: 11/24/2016 COMPARISON: NONE INDICATION: CHF TECHNIQUE: Frontal and lateral views of the chest are obtained. FINDINGS: The heart size is mildly prominent. The pulmonary vasculature is normal. Lower lobe infiltrates are resolving. Some residual remains at the left base.. IMPRESSION: 1. Residual left lower lobe mild infiltrate. Atelectasis and atypical pulmonary edema could be consid ered.
[2016-11-24] MEDS: IPRATROPIUM-ALBUTEROL 3 ML NEB INHALATION SCH ×4 (07:51→19:33)
[2016-11-24] MEDS: SYMBICORT 160-4.5 MCG INHALER INHALATION SCH ×2 (07:51→19:33)
[2016-11-24] MEDS: APIXABAN 2.5 MG TABLET PO SCH ×2 (08:04→20:48)
[2016-11-24] MEDS: methylPREDNISolone SOD SUCCI 40 MG/ML 1 ML VIAL IV SCH (08:04)
[2016-11-24] MEDS: AMIODARONE 200 MG TAB PO SCH ×2 (08:04→20:48)
[2016-11-24] MEDS: NICOTINE 14MG/24HR PATCH TRANSDERM SCH (08:05)
[2016-11-24] MEDS: NITROGLYCERIN OINT 1 INCH/GM PACKET TOPICAL SCH ×4 (08:08→20:56)
[2016-11-24] MEDS ORDERED: SODIUM POLYSTYRENE SULFONATE 15 GM/60 ML BOTTLE PO STA (10:31)
--- NOTE | 2016-11-24 10:48 | P.PN ---
Subjective Principal diagnosis: CHF secondary to systolic dysfunction This is a pleasant 71-year-old -[place] gentleman with known history of hypertension, hyperlipidemia, nonischemic cardiomyopathy with prior AICD implantation, acute on chronic renal failure, who used to follow regularly with Dr. VC Scott in the office. The patient presented to the hospital with progressive exertional dyspnea associated with progressive bilateral lower extremities edema. He was started on Lasix IV with improvement in the shortness of breath as well as edema. The blood work from today showed worsening in the kidney function and the IV Lasix was stopped and he was started on by mouth Lasix by the nephrology service. Objective - Vital Signs Vital signs: Vital Signs Temp 97.6 F 11/24/16 08:00 Pulse 60 11/24/16 08:09 Resp 18 11/24/16 08:00 BP 115/64 11/24/16 08:00 Pulse Ox 95 11/24/16 08:00 Intake & Output 11/23/16 11/24/16 11/24/16 18:59 06:59 18:59 Intake Total 252.5 240 Output Total 700 200 Balance -447.5 -200 240 Weight 106.3 kg Intake: Intake, IV Titration 12.5 Amount Insulin Regular 100 unit 12.5 In Sodium Chloride 0.9% 100 ml @ Titrate IV .Q0M [facility] Rx#:[id number] Oral 240 240 Output: Urine 700 200 Other: Voiding Method Urinal Urinal # Voids 1 - Constitutional General appearance: Present: no acute distress - Respiratory Respiratory: bilateral: CTA - Cardiovascular Heart sounds: normal: S1, S2 - Labs CBC & Chem 7: 11/24/16 05:44 11/24/16 05:44 Labs: Abnormal Lab Results - Last 24 Hours (Table) 11/23/16 11/23/16 11/23/16 Range/Units 06:13 11:45 13:38 WBC (3.8-10.6) k/uL Hct (39.0-53.0) % MCV (80.0-100.0) fL MCHC (31.0-37.0) g/dL RDW (11.5-15.5) % Neutrophils # (1.3-7.7) k/uL Potassium (3.5-5.1) mmol/L Chloride (98-107) mmol/L BUN (9-20) mg/dL Creatinine (0.66-1.25) mg/dL Glucose (74-99) mg/dL POC Glucose (mg/dL) 263 H 266 H (75-99) mg/dL Hemoglobin A1c 7.1 H (4.2-6.1) % 11/23/16 11/23/16 11/23/16 Range/Units 14:23 16:22 16:36 WBC (3.8-10.6) k/uL Hct (39.0-53.0) % MCV (80.0-100.0) fL MCHC (31.0-37.0) g/dL RDW (11.5-15.5) % Neutrophils # (1.3-7.7) k/uL Potassium (3.5-5.1) mmol/L Chloride (98-107) mmol/L BUN (9-20) mg/dL Creatinine (0.66-1.25) mg/dL Glucose (74-99) mg/dL POC Glucose (mg/dL) 198 H 69 L 67 L (75-99) mg/dL Hemoglobin A1c (4.2-6.1) % 11/23/16 11/23/16 11/24/16 Range/Units 17:34 21:00 05:44 WBC 17.5 H (3.8-10.6) k/uL Hct 53.2 H (39.0-53.0) % MCV 101.9 H (80.0-100.0) fL MCHC 29.9 L (31.0-37.0) g/dL RDW 16.7 H (11.5-15.5) % Neutrophils # 16.2 H (1.3-7.7) k/uL Potassium (3.5-5.1) mmol/L Chloride (98-107) mmol/L BUN (9-20) mg/dL Creatinine (0.66-1.25) mg/dL Glucose (74-99) mg/dL POC Glucose (mg/dL) 118 H 265 H (75-99) mg/dL Hemoglobin A1c (4.2-6.1) % 11/24/16 11/24/16 Range/Units 05:44 06:11 WBC (3.8-10.6) k/uL Hct (39.0-53.0) % MCV (80.0-100.0) fL MCHC (31.0-37.0) g/dL RDW (11.5-15.5) % Neutrophils # (1.3-7.7) k/uL Potassium 5.6 H (3.5-5.1) mmol/L Chloride 97 L (98-107) mmol/L BUN 82 H* (9-20) mg/dL Creatinine 2.10 H (0.66-1.25) mg/dL Glucose 152 H (74-99) mg/dL POC Glucose (mg/dL) 148 H (75-99) mg/dL Hemoglobin A1c (4.2-6.1) % Assessment and Plan Plan: This is a pleasant 71-year-old -[place] gentleman who is known to have severe cardiomyopathy was admitted to the hospital was congestive heart failure exacerbation secondary to systolic dysfunction. He was started on Lasix IV and currently he is on Lasix by mouth because of the worsening kidney function today. We'll continue Lasix by mouth for additional 24 hours and continue monitoring the kidney function and electrolytes.
[2016-11-24] MEDS: FUROSEMIDE 10 MG/ML 4 ML VIAL IV SCH (10:49)
--- NOTE | 2016-11-24 10:49 | P.PN ---
Subjective Patient is seen in follow-up for acute kidney injury on chronic kidney disease. Patient has chronic kidney disease stage III secondary to cardiorenal syndrome with baseline creatinine in the range of 2.0-2.4. Creatinine today is 2.1. Patient has systolic CHF with ejection fraction of 30-35% with severe tricuspid regurgitation. Patient presented with dyspnea and edema. He is diuresing well. Edema is improved. Dyspnea is also improved. Oral intake is good. Vital signs are stable. General: The patient appeared well nourished and normally developed. HEENT: Head exam is unremarkable. Neck is without jugular venous distension. LUNGS: Lungs are clear to auscultation and percussion. Breath sounds decreased. HEART: Rate and Rhythm are regular. First and second heart sounds normal. No murmurs, rubs or gallops. ABDOMEN: Abdominal exam reveals normal bowel sounds. Non-tender and non- distended. No evidence of peritonitis. EXTREMITITES: No edema. Objective - Vital Signs Vital signs: Vital Signs Temp 97.6 F 11/24/16 08:00 Pulse 60 11/24/16 08:09 Resp 18 11/24/16 08:00 BP 115/64 11/24/16 08:00 Pulse Ox 95 11/24/16 08:00 Intake & Output 11/23/16 11/24/16 11/24/16 18:59 06:59 18:59 Intake Total 252.5 240 Output Total 700 200 Balance -447.5 -200 240 Weight 106.3 kg Intake: Intake, IV Titration 12.5 Amount Insulin Regular 100 unit 12.5 In Sodium Chloride 0.9% 100 ml @ Titrate IV .Q0M [facility] Rx#:[id number] Oral 240 240 Output: Urine 700 200 Other: Voiding Method Urinal Urinal # Voids 1 - Labs CBC & Chem 7: 11/24/16 05:44 11/24/16 05:44 Labs: Abnormal Lab Results - Last 24 Hours (Table) 11/23/16 11/23/16 11/23/16 Range/Units 06:13 11:45 13:38 WBC (3.8-10.6) k/uL Hct (39.0-53.0) % MCV (80.0-100.0) fL MCHC (31.0-37.0) g/dL RDW (11.5-15.5) % Neutrophils # (1.3-7.7) k/uL Potassium (3.5-5.1) mmol/L Chloride (98-107) mmol/L BUN (9-20) mg/dL Creatinine (0.66-1.25) mg/dL Glucose (74-99) mg/dL POC Glucose (mg/dL) 263 H 266 H (75-99) mg/dL Hemoglobin A1c 7.1 H (4.2-6.1) % 11/23/16 11/23/16 11/23/16 Range/Units 14:23 16:22 16:36 WBC (3.8-10.6) k/uL Hct (39.0-53.0) % MCV (80.0-100.0) fL MCHC (31.0-37.0) g/dL RDW (11.5-15.5) % Neutrophils # (1.3-7.7) k/uL Potassium (3.5-5.1) mmol/L Chloride (98-107) mmol/L BUN (9-20) mg/dL Creatinine (0.66-1.25) mg/dL Glucose (74-99) mg/dL POC Glucose (mg/dL) 198 H 69 L 67 L (75-99) mg/dL Hemoglobin A1c (4.2-6.1) % 11/23/16 11/23/16 11/24/16 Range/Units 17:34 21:00 05:44 WBC 17.5 H (3.8-10.6) k/uL Hct 53.2 H (39.0-53.0) % MCV 101.9 H (80.0-100.0) fL MCHC 29.9 L (31.0-37.0) g/dL RDW 16.7 H (11.5-15.5) % Neutrophils # 16.2 H (1.3-7.7) k/uL Potassium (3.5-5.1) mmol/L Chloride (98-107) mmol/L BUN (9-20) mg/dL Creatinine (0.66-1.25) mg/dL Glucose (74-99) mg/dL POC Glucose (mg/dL) 118 H 265 H (75-99) mg/dL Hemoglobin A1c (4.2-6.1) % 11/24/16 11/24/16 Range/Units 05:44 06:11 WBC (3.8-10.6) k/uL Hct (39.0-53.0) % MCV (80.0-100.0) fL MCHC (31.0-37.0) g/dL RDW (11.5-15.5) % Neutrophils # (1.3-7.7) k/uL Potassium 5.6 H (3.5-5.1) mmol/L Chloride 97 L (98-107) mmol/L BUN 82 H* (9-20) mg/dL Creatinine 2.10 H (0.66-1.25) mg/dL Glucose 152 H (74-99) mg/dL POC Glucose (mg/dL) 148 H (75-99) mg/dL Hemoglobin A1c (4.2-6.1) % Assessment and Plan Plan: Assessment: #1. Chronic kidney disease stage III secondary to cardiorenal syndrome. Recent creatinine is in the range of 2.1-2.4. Prior urinalysis has been quite benign. GFR at baseline. #2. Hyperkalemia secondary to underlying chronic kidney disease and from the use of Aldactone. Improved with medical treatment. Blood sugars tend to be labile. No evidence of metabolic acidosis. #3. Volume overload. Improving. #4. Systolic CHF with ejection fraction of 30-35% with severe tricuspid regurgitation. Plan: I will change Lasix to 40 mg orally twice daily. Maintain low potassium diet and 1.2 L fluid restriction. Kayexalate 40 mg orally once today. Continue to hold Aldactone for now. Avoid nephrotoxic agents and hypotensive episodes. Repeat electrolytes in the morning. Potential discharge home today. He will need to follow-up as an outpatient in the next 2 weeks for CKD care.
[2016-11-24 11:29] LABS: Glucose,Whole Blood 204 mg/dL (75-99)
[2016-11-24] MEDS: SODIUM CHLORIDE 0.9% 1,000 ML IV SCH (13:24)
[2016-11-24] MEDS: FUROSEMIDE 40 MG TAB PO SCH (15:31)
--- NOTE | 2016-11-24 16:10 | P.PN ---
Subjective Progress note being dictated for Dr. Rasmussen. 11/21/16 Interval history: This a 71-year-old gentleman admitted with acute CHF exacerbation, acute on chronic renal failure and multiple other medical issues. Received Kayexalate with improvement in potassium, currently down to 5.5. Evaluated by cardiology and nephrology with recommendations noted. Diuresing well on Lasix IV push with 24-hour I&O reflecting a negative fluid balance. Increased wheezing today. Telemetry sinus rhythm with first-degree AV block. Echo reporting severe tricuspid regurgitation, moderate to severe pulmonary hypertension, severe global hypo-kinesis of LV, EF between 30 and 35%. 11/22/16: Maintained on fluid restrictions, steroids, nebulized bronchodilators. Wheezing, shortness of breath, improving. Diuresing well on Lasix IV push with 24-hour I&O reflecting a negative fluid balance. Renal function improving. Magnesium 1.8, potassium 5.3. Elevated blood sugars, hemoglobin A1c 6.9. 11/23/2016 Breathing continues to improve. Diuresing well with 24-hour I&O reflecting a negative fluid balance. Standing renal function, IV push Lasix converted to oral. Potassium 5.6, receiving Kayexalate. Denies chest pain, palpitations. Objective - Vital Signs Vital signs: Vital Signs Temp 97.3 F L 11/24/16 12:00 Pulse 76 11/24/16 12:00 Resp 18 11/24/16 12:00 BP 134/66 11/24/16 12:00 Pulse Ox 94 L 11/24/16 12:00 Intake & Output 11/23/16 11/24/16 11/24/16 18:59 06:59 18:59 Intake Total 252.5 780 Output Total 700 200 Balance -447.5 -200 780 Weight 106.3 kg Intake: Intake, IV Titration 12.5 Amount Insulin Regular 100 unit 12.5 In Sodium Chloride 0.9% 100 ml @ Titrate IV .Q0M [facility] Rx#:[id number] Oral 240 780 Output: Urine 700 200 Other: Voiding Method Urinal Urinal # Voids 1 - Exam PHYSICAL EXAM: VITAL SIGNS: As above GENERAL: [Sitting up in bed, no acute distress HEENT: [Pupils equal conjunctiva normal. Oral mucosa moist] NECK: [Supple, no JVD] RESPIRATORY EFFORT:[ normal] LUNGS: [Bilateral bases diminished, no wheezing ,rhonchi or crackles] CARDIOVASCULAR[ regular S1 and S2, positive systolic murmur, no rubs or gallops , decreasing edema] GI: [Abdomen soft, nontender, positive bowel sounds.] PSYCH: [Alert and oriented -3, mood and affect normal.] NEURO: No focal deficits, moves all 4 extremities, strength and sensation grossly intact - Labs CBC & Chem 7: 11/24/16 05:44 11/24/16 05:44 Labs: Abnormal Lab Results - Last 24 Hours (Table) 11/23/16 11/23/16 11/23/16 Range/Units 06:13 16:22 16:36 WBC (3.8-10.6) k/uL Hct (39.0-53.0) % MCV (80.0-100.0) fL MCHC (31.0-37.0) g/dL RDW (11.5-15.5) % Neutrophils # (1.3-7.7) k/uL Potassium (3.5-5.1) mmol/L Chloride (98-107) mmol/L BUN (9-20) mg/dL Creatinine (0.66-1.25) mg/dL Glucose (74-99) mg/dL POC Glucose (mg/dL) 69 L 67 L (75-99) mg/dL Hemoglobin A1c 7.1 H (4.2-6.1) % 11/23/16 11/23/16 11/24/16 Range/Units 17:34 21:00 05:44 WBC 17.5 H (3.8-10.6) k/uL Hct 53.2 H (39.0-53.0) % MCV 101.9 H (80.0-100.0) fL MCHC 29.9 L (31.0-37.0) g/dL RDW 16.7 H (11.5-15.5) % Neutrophils # 16.2 H (1.3-7.7) k/uL Potassium (3.5-5.1) mmol/L Chloride (98-107) mmol/L BUN (9-20) mg/dL Creatinine (0.66-1.25) mg/dL Glucose (74-99) mg/dL POC Glucose (mg/dL) 118 H 265 H (75-99) mg/dL Hemoglobin A1c (4.2-6.1) % 11/24/16 11/24/16 11/24/16 Range/Units 05:44 06:11 11:28 WBC (3.8-10.6) k/uL Hct (39.0-53.0) % MCV (80.0-100.0) fL MCHC (31.0-37.0) g/dL RDW (11.5-15.5) % Neutrophils # (1.3-7.7) k/uL Potassium 5.6 H (3.5-5.1) mmol/L Chloride 97 L (98-107) mmol/L BUN 82 H* (9-20) mg/dL Creatinine 2.10 H (0.66-1.25) mg/dL Glucose 152 H (74-99) mg/dL POC Glucose (mg/dL) 148 H 204 H (75-99) mg/dL Hemoglobin A1c (4.2-6.1) % Assessment and Plan Plan: 1. Acute on chronic systolic CHF exacerbation, EF 30-35%. 2. [ Acute on chronic kidney disease, stage III]. 3. [ Hyperkalemia secondary to acute renal failure]. 4. [ Acute COPD exacerbation]. 5. Chronic paroxysmal atrial fibrillation 6. Moderate to severe pulmonary hypertension 7. Severe Tricuspid regurgitation Plan: Continue on current medication regime , Lasix, steroids, nebulized bronchodilators ,monitoring and symptomatic treatment. Maintain fluid restrictions. Close monitoring of electrolytes with repeat labs ordered for a.m. tighter blood sugar control, Lantus dose increased. Discharge planning in progress for tomorrow. The impression and plan of care has been dictated as directed. : I performed a H&P examination of this patient and discussed the same with the dictator. I agree with the dictator's note. Any additional findings/opinions/ etc. will be noted.
[2016-11-24 17:03] LABS: Glucose,Whole Blood 201 mg/dL (75-99)
[2016-11-24 20:33] LABS: Glucose,Whole Blood 223 mg/dL (75-99)
[2016-11-24] MEDS: INSULIN GLARGINE 100 UNIT/ML 10 ML VIAL SQ SCH (20:48)
[2016-11-25 05:59] LABS: Glucose,Whole Blood 203 mg/dL (75-99)
[2016-11-25 06:06] LABS: Anisocytosis Slight; Basophils % (A) 0 %; CH 31.1; Eosinophils % (A) 0 %; HCT 49.8 % (39.0-53.0); HDW 2.58; HGB 14.9 gm/dL (13.0-17.5); Hypochromasia Slight; Luc # (Auto) 0.12; Luc % (Auto) 1; Lymphocytes # (A) 0.9 k/uL (1.0-4.8); Lymphocytes % (A) 7 %; MCH 30.3 pg (25.0-35.0); MCHC 29.9 g/dL (31.0-37.0); MCV 101.2 fL (80.0-100.0); Macrocytosis Slight; Mean Platelet Volume 8.6; Monocytes # (A) 0.6 k/uL (0-1.0); Monocytes % (A) 5 %; Neutrophils # (A) 11.8 k/uL (1.3-7.7); Neutrophils % (A) 87 %; RBC 4.92 m/uL (4.30-5.90); RDW 16.6 % (11.5-15.5); WBC 13.5 k/uL (3.8-10.6); WBC (Perox) 12.83
[2016-11-25 06:14] LABS: Potassium 4.2 mmol/L (3.5-5.1)
[2016-11-25] MEDS: INSULIN LISPRO (humaLOG) 300 UNIT/3 ML VIAL SQ SCH ×4 (06:29→21:11)
[2016-11-25] MEDS: LEVOTHYROXINE 50 MCG TAB PO SCH (06:29)
[2016-11-25] MEDS: CARVEDILOL 3.125 MG TAB PO SCH ×2 (06:29→17:43)
[2016-11-25] MEDS: PANTOPRAZOLE 40 MG TABLET PO SCH (06:30)
--- NOTE | 2016-11-25 08:50 | P.PN ---
Subjective this is a 71-year-old male known with chronic kidney disease stage III with cardiorenal syndrome and acute kidney injury. he was additionally hyperkalemic and was on Aldactone that has been discontinued. he has ejection fraction of 30-35%, is being diuresed with improvement subjectively in his shortness of breath. He is able to walk. currently his on room air. edema is resolved. is currently on 40 mg of Lasix by mouth twice a day. appetite is good. His urine output is not documented accurately as he goes into the bathroom Objective - Vital Signs Vital signs: Vital Signs Temp 97.5 F L 11/25/16 04:00 Pulse 66 11/25/16 04:00 Resp 18 11/25/16 04:00 BP 112/60 11/25/16 04:00 Pulse Ox 98 11/25/16 04:00 Intake & Output 11/24/16 11/25/16 11/25/16 18:59 06:59 18:59 Intake Total 780 20 Balance 780 20 Weight 108.3 kg Intake: Intake, IV Titration 20 Amount Sodium Chloride 0.9% 1, 20 000 ml @ 20 mls/hr IV . Q24H [facility] Rx#:[id number] Oral 780 Other: Voiding Method Urinal Urinal on examination is awake alert oriented HEENT exam no JVP lymphadenopathy neck is supple no facial asymmetry Lungs are clear to auscultation percussion good air entry bilaterally Heart sounds are unremarkable no murmur rub gallop Abdomen soft nontender no masses felt no organomegaly. Extremity exam was no edema neurologically awake alert oriented - Labs CBC & Chem 7: 11/25/16 05:35 11/25/16 05:35 Labs: Abnormal Lab Results - Last 24 Hours (Table) 11/24/16 11/24/16 11/24/16 Range/Units 11:28 17:01 20:32 WBC (3.8-10.6) k/uL MCV (80.0-100.0) fL MCHC (31.0-37.0) g/dL RDW (11.5-15.5) % Neutrophils # (1.3-7.7) k/uL Lymphocytes # (1.0-4.8) k/uL Sodium (137-145) mmol/L Chloride (98-107) mmol/L BUN (9-20) mg/dL Creatinine (0.66-1.25) mg/dL Glucose (74-99) mg/dL POC Glucose (mg/dL) 204 H 201 H 223 H (75-99) mg/dL Calcium (8.4-10.2) mg/dL 11/25/16 11/25/16 11/25/16 Range/Units 05:35 05:35 05:57 WBC 13.5 H (3.8-10.6) k/uL MCV 101.2 H (80.0-100.0) fL MCHC 29.9 L (31.0-37.0) g/dL RDW 16.6 H (11.5-15.5) % Neutrophils # 11.8 H (1.3-7.7) k/uL Lymphocytes # 0.9 L (1.0-4.8) k/uL Sodium 136 L (137-145) mmol/L Chloride 97 L (98-107) mmol/L BUN 89 H* (9-20) mg/dL Creatinine 2.22 H (0.66-1.25) mg/dL Glucose 231 H (74-99) mg/dL POC Glucose (mg/dL) 203 H (75-99) mg/dL Calcium 8.0 L (8.4-10.2) mg/dL Assessment and Plan Plan: impression 1. acute kidney injury secondary to cardiorenal syndrome, stable creatinine on current dose of Lasix 40 twice a day with adequate urine output although not documented accurately,possibly acute element resolved now. currently his creatinine is 2.2 as of this morning and or the last 1 year his creatinine has ranged between 3.8 to 1. 4 therefore baseline is not accurate. 2. hyperkalemia resolved 3. mild hyponatremia sodium 136 secondary to acute kidney injury and chronic kidney disease. 4. Systolic dysfunction with ejection fraction 30-35% with severe tricuspid regurgitation. recommendation. Maintain current medications. patient can be discharged and followed up as an outpatient. He comes from the [facility] but he has no home and is currently looking for some place to stay
[2016-11-25] MEDS: APIXABAN 2.5 MG TABLET PO SCH ×2 (08:56→21:11)
[2016-11-25] MEDS: AMIODARONE 200 MG TAB PO SCH ×2 (08:56→21:11)
[2016-11-25] MEDS: predniSONE 20 MG TAB PO SCH (08:57)
[2016-11-25] MEDS: FUROSEMIDE 40 MG TAB PO SCH ×2 (08:57→18:08)
[2016-11-25] MEDS: NICOTINE 14MG/24HR PATCH TRANSDERM SCH (08:57)
[2016-11-25] MEDS: SYMBICORT 160-4.5 MCG INHALER INHALATION SCH ×2 (08:57→19:51)
[2016-11-25] MEDS: IPRATROPIUM-ALBUTEROL 3 ML NEB INHALATION SCH ×4 (08:57→19:51)
[2016-11-25] MEDS: NITROGLYCERIN OINT 1 INCH/GM PACKET TOPICAL SCH ×4 (08:57→21:12)
--- NOTE | 2016-11-25 11:27 | P.PN ---
Subjective Principal diagnosis: CHF This is a pleasant 71-year-old -[place] gentleman with known history of hypertension, hyperlipidemia, nonischemic cardiomyopathy with prior AICD implantation, acute on chronic renal failure, who used to follow regularly with Dr. VC Scott in the office. He had recently moved to [place] to reside with his brother, and now is currently homeless. He presents to the hospital with symptoms of progressively worsening shortness of breath and edema. Chest x-ray on admission here reveals findings suggestive of underlying pulmonary edema. EKG shows a sinus bradycardia with a first-degree AV block and nonspecific ST-T wave changes. Blood pressure 130/60 with a heart rate in the 70s, 95% on room air. White blood cell count 7.6 on admission, 12.2 this morning. Platelet count 161, potassium 5.5, BUN 46, creatinine 2.4. Troponin 0.055. BNP 4860. Patient was initiated on IV Lasix in the emergency room. He has been diuresing . Continues to feel quite short of breath this morning. Positive PND and orthopnea. 11/22/2016 Patient seen and examined this morning, diuresing well on IV Lasix. Weight is down 3 kg today. WBC 11.0, hemoglobin 14.2, platelet count 150. Potassium 4.8 , BUN 55, creatinine 2.3. Magnesium level I.4. 11/23/2016 Patient seen and examined this morning, continues to diurese well. Feeling much better overall. Potassium 5.3 today, creatinine 1.9, a serum level I.8. 11/25/2016 Patient seen and examined this morning, doing much better overall. Currently on by mouth Lasix. Arrangements are being made for the patient to be discharged home on Sunday, assistance has been given with housing, he will go there Sunday morning and arrange for an apartment. Objective - Vital Signs Vital signs: Vital Signs Temp 97 F L 11/25/16 08:50 Pulse 88 11/25/16 09:09 Resp 18 11/25/16 08:50 BP 131/68 11/25/16 08:50 Pulse Ox 98 11/25/16 08:59 Intake & Output 11/24/16 11/25/16 11/25/16 18:59 06:59 18:59 Intake Total 780 20 360 Balance 780 20 360 Weight 108.3 kg Intake: Intake, IV Titration 20 Amount Sodium Chloride 0.9% 1, 20 000 ml @ 20 mls/hr IV . Q24H [facility] Rx#:[id number] Oral 780 360 Other: Voiding Method Urinal Urinal Urinal - Exam PHYSICAL EXAMINATION: HEENT: Head is atraumatic, normocephalic. Pupils equal, round. Neck is supple. There is no elevated jugular venous pressure. HEART EXAMINATION: S1 and S2 systolic murmur is heard. CHEST EXAMINATION: Lungs clear to auscultation. ABDOMEN: Soft, nontender. Bowel sounds are heard. No organomegaly noted. EXTREMITIES: 2+ peripheral pulses with no evidence of peripheral edema and no calf tenderness noted. NEUROLOGIC patient is awake, alert and oriented -3. . - Labs CBC & Chem 7: 11/25/16 05:35 11/25/16 05:35 Labs: Abnormal Lab Results - Last 24 Hours (Table) 11/24/16 11/24/16 11/24/16 Range/Units 11:28 17:01 20:32 WBC (3.8-10.6) k/uL MCV (80.0-100.0) fL MCHC (31.0-37.0) g/dL RDW (11.5-15.5) % Neutrophils # (1.3-7.7) k/uL Lymphocytes # (1.0-4.8) k/uL Sodium (137-145) mmol/L Chloride (98-107) mmol/L BUN (9-20) mg/dL Creatinine (0.66-1.25) mg/dL Glucose (74-99) mg/dL POC Glucose (mg/dL) 204 H 201 H 223 H (75-99) mg/dL Calcium (8.4-10.2) mg/dL 11/25/16 11/25/16 11/25/16 Range/Units 05:35 05:35 05:57 WBC 13.5 H (3.8-10.6) k/uL MCV 101.2 H (80.0-100.0) fL MCHC 29.9 L (31.0-37.0) g/dL RDW 16.6 H (11.5-15.5) % Neutrophils # 11.8 H (1.3-7.7) k/uL Lymphocytes # 0.9 L (1.0-4.8) k/uL Sodium 136 L (137-145) mmol/L Chloride 97 L (98-107) mmol/L BUN 89 H* (9-20) mg/dL Creatinine 2.22 H (0.66-1.25) mg/dL Glucose 231 H (74-99) mg/dL POC Glucose (mg/dL) 203 H (75-99) mg/dL Calcium 8.0 L (8.4-10.2) mg/dL Assessment and Plan Plan: Assessment and plan #1 systolic congestive heart failure acute on chronic #2 nonischemic cardiomyopathy with prior AICD implantation #3 hypertension #4 acute on chronic kidney disease # 5 abnormal troponin, likely secondary to abnormal renal function #5 paroxysmal atrial fibrillation on Eliquis for anticoagulation #6 hyperlipidemia #7 COPD #8 prior CVA Plan Cardiology's perspective, we will recommend to continue the patient on his current medications. Upon discharge we will make him a follow-up appointment to see Dr. VC Scott in the office 2-3 weeks post discharge. DNP note has been reviewed, I agree with a documented findings and plan of care. Patient was seen and examined.
[2016-11-25] MEDS: SODIUM CHLORIDE 0.9% 1,000 ML IV SCH (12:01)
[2016-11-25 12:25] LABS: Glucose,Whole Blood 166 mg/dL (75-99)
--- NOTE | 2016-11-25 13:59 | P.PN ---
Subjective Progress note being dictated for Dr. Rasmussen. 11/21/16 Interval history: This a 71-year-old gentleman admitted with acute CHF exacerbation, acute on chronic renal failure and multiple other medical issues. Received Kayexalate with improvement in potassium, currently down to 5.5. Evaluated by cardiology and nephrology with recommendations noted. Diuresing well on Lasix IV push with 24-hour I&O reflecting a negative fluid balance. Increased wheezing today. Telemetry sinus rhythm with first-degree AV block. Echo reporting severe tricuspid regurgitation, moderate to severe pulmonary hypertension, severe global hypo-kinesis of LV, EF between 30 and 35%. 11/22/16: Complains of shortness of breath, wheezing. Maintained on fluid restrictions, low potassium diet. Aldactone remains on hold with Potassium improved currently at 4.8. Diuresing well on Lasix IV push with 24-hour I&O reflecting a negative fluid balance. Magnesium 1.4, receiving supplements. 11/23/16: Maintained on fluid restrictions, steroids, nebulized bronchodilators. Wheezing, shortness of breath, improving. Diuresing well on Lasix IV push with 24-hour I&O reflecting a negative fluid balance. Renal function improving. Magnesium 1.8, potassium 5.3. Elevated blood sugars, hemoglobin A1c 6.9. 11/24/2016 Breathing continues to improve. Diuresing well with 24-hour I&O reflecting a negative fluid balance. Standing renal function, IV push Lasix converted to oral. Potassium 5.6, receiving Kayexalate. Denies chest pain, palpitations. 11/25/2016 maintained on oral Lasix, fluid restrictions, nebulized bronchodilators,oral steroids, breathing much improved, no wheezing, trace edema. Ambulating to and from bathroom , tolerating exertion well. Denies chest pain, palpitations or increasing shortness of breath. Objective - Vital Signs Vital signs: Vital Signs Temp 97 F L 11/25/16 08:50 Pulse 76 11/25/16 12:18 Resp 16 11/25/16 12:00 BP 135/78 11/25/16 12:00 Pulse Ox 95 11/25/16 12:00 Intake & Output 11/24/16 11/25/16 11/25/16 18:59 06:59 18:59 Intake Total 780 20 360 Balance 780 20 360 Weight 108.3 kg Intake: Intake, IV Titration 20 Amount Sodium Chloride 0.9% 1, 20 000 ml @ 20 mls/hr IV . Q24H [facility] Rx#:[id number] Oral 780 360 Other: Voiding Method Urinal Urinal Urinal - Exam PHYSICAL EXAM: VITAL SIGNS: As above GENERAL: [Sitting up at side of bed, no acute distress HEENT: [Pupils equal conjunctiva normal. Oral mucosa moist] NECK: [Supple, no JVD] RESPIRATORY EFFORT:[ normal] LUNGS: [Bilateral bases diminished, no wheezing ,rhonchi or crackles] CARDIOVASCULAR[ regular S1 and S2, positive systolic murmur, no rubs or gallops , trace edema] GI: [Abdomen soft, nontender, positive bowel sounds.] PSYCH: [Alert and oriented -3, mood and affect normal.] NEURO: No focal deficits, moves all 4 extremities, strength and sensation grossly intact - Labs CBC & Chem 7: 11/25/16 05:35 11/25/16 05:35 Labs: Abnormal Lab Results - Last 24 Hours (Table) 11/24/16 11/24/16 11/25/16 Range/Units 17:01 20:32 05:35 WBC 13.5 H (3.8-10.6) k/uL MCV 101.2 H (80.0-100.0) fL MCHC 29.9 L (31.0-37.0) g/dL RDW 16.6 H (11.5-15.5) % Neutrophils # 11.8 H (1.3-7.7) k/uL Lymphocytes # 0.9 L (1.0-4.8) k/uL Sodium (137-145) mmol/L Chloride (98-107) mmol/L BUN (9-20) mg/dL Creatinine (0.66-1.25) mg/dL Glucose (74-99) mg/dL POC Glucose (mg/dL) 201 H 223 H (75-99) mg/dL Calcium (8.4-10.2) mg/dL 11/25/16 11/25/16 11/25/16 Range/Units 05:35 05:57 12:10 WBC (3.8-10.6) k/uL MCV (80.0-100.0) fL MCHC (31.0-37.0) g/dL RDW (11.5-15.5) % Neutrophils # (1.3-7.7) k/uL Lymphocytes # (1.0-4.8) k/uL Sodium 136 L (137-145) mmol/L Chloride 97 L (98-107) mmol/L BUN 89 H* (9-20) mg/dL Creatinine 2.22 H (0.66-1.25) mg/dL Glucose 231 H (74-99) mg/dL POC Glucose (mg/dL) 203 H 166 H (75-99) mg/dL Calcium 8.0 L (8.4-10.2) mg/dL Assessment and Plan Plan: 1. Acute on chronic systolic CHF exacerbation, EF 30-35%. 2. [ Acute on chronic kidney disease, stage III]. 3. [ Hyperkalemia secondary to acute renal failure]. 4. [ Acute COPD exacerbation]. 5. Chronic paroxysmal atrial fibrillation 6. Moderate to severe pulmonary hypertension 7. Severe Tricuspid regurgitation Plan: Continue on current medication regime , oral Lasix, oral steroids, nebulized bronchodilators ,monitoring and symptomatic treatment. Maintain fluid restrictions. Close monitoring of electrolytes with repeat labs ordered for a.m. Lantus dose increased yesterday, better controlled today, close monitoring of Accu-Cheks. Patient is currently homeless, case management has arranged for senior housing with application to be processed on Sunday. Transfer [facility]. Discharge planning in progress. The impression and plan of care has been dictated as directed. : I performed a H&P examination of this patient and discussed the same with the dictator. I agree with the dictator's note. Any additional findings/opinions/ etc. will be noted.
[2016-11-25 16:44] LABS: Glucose,Whole Blood 376 mg/dL (75-99)
[2016-11-25 20:40] LABS: Glucose,Whole Blood 184 mg/dL (75-99)
[2016-11-25] MEDS: INSULIN GLARGINE 100 UNIT/ML 10 ML VIAL SQ SCH (21:11)
[2016-11-26] MEDS: LEVOTHYROXINE 50 MCG TAB PO SCH (06:11)
[2016-11-26] MEDS: IPRATROPIUM-ALBUTEROL 3 ML NEB INHALATION SCH ×4 (08:03→21:04)
[2016-11-26 08:05] LABS: Glucose,Whole Blood 105 mg/dL (75-99)
[2016-11-26] MEDS: SYMBICORT 160-4.5 MCG INHALER INHALATION SCH ×2 (08:06→21:02)
[2016-11-26] MEDS: INSULIN LISPRO (humaLOG) 300 UNIT/3 ML VIAL SQ SCH ×4 (08:14→21:44)
[2016-11-26] MEDS: PANTOPRAZOLE 40 MG TABLET PO SCH (08:17)
[2016-11-26] MEDS: AMIODARONE 200 MG TAB PO SCH ×2 (08:17→21:43)
[2016-11-26] MEDS: APIXABAN 2.5 MG TABLET PO SCH ×2 (08:17→21:43)
[2016-11-26] MEDS: NITROGLYCERIN OINT 1 INCH/GM PACKET TOPICAL SCH ×4 (08:17→21:50)
[2016-11-26] MEDS: predniSONE 20 MG TAB PO SCH (08:17)
[2016-11-26] MEDS: CARVEDILOL 3.125 MG TAB PO SCH ×2 (08:17→16:50)
[2016-11-26] MEDS: FUROSEMIDE 40 MG TAB PO SCH ×2 (08:17→16:50)
[2016-11-26] MEDS: NICOTINE 14MG/24HR PATCH TRANSDERM SCH (08:24)
--- NOTE | 2016-11-26 10:11 | P.PN ---
Subjective this is a 71-year-old male known with chronic kidney disease stage III with cardiorenal syndrome and acute kidney injury. he was additionally hyperkalemia and was on Aldactone that has been discontinued. he has ejection fraction of 30-35%, is being diuresed with improvement subjectively in his shortness of breath. He is able to walk. currently his on room air. edema is resolved. is currently on 40 mg of Lasix by mouth twice a day. appetite is good. His urine output is not documented accurately as he goes into the bathroom. His vital signs are stable. Objective - Vital Signs Vital signs: Vital Signs Temp 97.1 F L 11/25/16 22:00 Pulse 73 11/26/16 08:13 Resp 18 11/26/16 08:00 BP 142/76 11/26/16 07:00 Pulse Ox 98 11/26/16 07:00 Intake & Output 11/25/16 11/26/16 11/26/16 18:59 06:59 18:59 Intake Total 610 354 600 Output Total 1010 400 Balance 610 -656 200 Weight 111 kg 111 kg Intake: Oral 610 354 600 Output: Urine 1010 400 Other: Voiding Method Urinal Urinal Urinal # Voids 2 1 1 On examination he is comfortable. Awake alert oriented HEENT exam no JVP neck is supple no facial asymmetry Lungs clear to auscultation percussion good air entry bilaterally Heart sounds are unremarkable for any murmur rub gallop Abdomen soft nontender Extremity exam was no edema Awake alert oriented warm to touch Neurologically no focal motor deficit - Labs CBC & Chem 7: 11/25/16 05:35 11/25/16 05:35 Labs: Abnormal Lab Results - Last 24 Hours (Table) 11/25/16 11/25/16 11/25/16 Range/Units 12:10 16:38 20:38 POC Glucose (mg/dL) 166 H 376 H 184 H (75-99) mg/dL 11/26/16 Range/Units 07:45 POC Glucose (mg/dL) 105 H (75-99) mg/dL Assessment and Plan Plan: impression 1. acute kidney injury secondary to cardiorenal syndrome, stable creatinine on current dose of Lasix 40 twice a day with adequate urine output although not documented accurately,possibly acute element resolved now. His latest creatinine is from yesterday and today's labs are pending. His baseline creatinine is difficult to determine as it ranges between 1.4-3.8 2. Chronic kidney disease ranging between CK D stage II to occasionally IV, GFR ranges between 19 to greater than 60 Baseline creatinine ranges between 1.4 mg to 3.8 mg for the last 2 years from 2015. 2. hyperkalemia resolved 3. mild hyponatremia sodium 136 secondary to acute kidney injury and chronic kidney disease. 4. Systolic dysfunction with ejection fraction 30-35% with severe tricuspid regurgitation. recommendation. Maintain current medications. patient can be discharged and followed up as an outpatient. He comes from the [facility] but he has no home and is currently looking for some place to stay
[2016-11-26 11:03] LABS: Glucose,Whole Blood 198 mg/dL (75-99)
[2016-11-26] MEDS: SODIUM CHLORIDE 0.9% 1,000 ML IV SCH (13:01)
[2016-11-26 18:03] LABS: Glucose,Whole Blood 143 mg/dL (75-99)
[2016-11-26 20:08] LABS: Glucose,Whole Blood 232 mg/dL (75-99)
[2016-11-26] MEDS: INSULIN GLARGINE 100 UNIT/ML 10 ML VIAL SQ SCH (21:43)
[2016-11-27] MEDS: LEVOTHYROXINE 50 MCG TAB PO SCH (06:14)
[2016-11-27 07:20] LABS: Glucose,Whole Blood 88 mg/dL (75-99)
[2016-11-27] MEDS: INSULIN LISPRO (humaLOG) 300 UNIT/3 ML VIAL SQ SCH (07:38)
[2016-11-27 07:39] VITALS: BP 138/79; RESP 18; TEMP 97.9
[2016-11-27] MEDS: NICOTINE 14MG/24HR PATCH TRANSDERM SCH (07:39)
[2016-11-27] MEDS: SYMBICORT 160-4.5 MCG INHALER INHALATION SCH (07:43)
[2016-11-27] MEDS: IPRATROPIUM-ALBUTEROL 3 ML NEB INHALATION SCH (07:43)
[2016-11-27] MEDS: CARVEDILOL 3.125 MG TAB PO SCH (07:58)
[2016-11-27] MEDS: PANTOPRAZOLE 40 MG TABLET PO SCH (07:58)
[2016-11-27 08:04] VITALS: PULSE 52
[2016-11-27] MEDS ORDERED: predniSONE 10 MG TAB PO SCH (09:00)
[2016-11-27] MEDS: APIXABAN 2.5 MG TABLET PO SCH (09:15)
[2016-11-27] MEDS: FUROSEMIDE 40 MG TAB PO SCH (09:15)
[2016-11-27] MEDS: AMIODARONE 200 MG TAB PO SCH (09:15)
[2016-11-27] MEDS: NITROGLYCERIN OINT 1 INCH/GM PACKET TOPICAL SCH (09:15)
[2016-11-27] MEDS: SODIUM CHLORIDE 0.9% 1,000 ML IV SCH (09:18)
--- NOTE | 2016-11-27 10:16 | P.PN ---
Subjective Patient is seen in follow-up for acute kidney injury on chronic kidney disease. Patient has chronic kidney disease stage III secondary to cardiorenal syndrome with baseline creatinine in the range of 2.0-2.4. Patient has systolic CHF with ejection fraction of 30-35% with severe tricuspid regurgitation. Patient presented with dyspnea and edema. He is diuresing well. Edema is improved. Dyspnea is also improved. Oral intake is good. No active complaints at this time. Vital signs are stable. General: The patient appeared well nourished and normally developed. HEENT: Head exam is unremarkable. Neck is without jugular venous distension. LUNGS: Lungs are clear to auscultation and percussion. Breath sounds decreased. HEART: Rate and Rhythm are regular. First and second heart sounds normal. No murmurs, rubs or gallops. ABDOMEN: Abdominal exam reveals normal bowel sounds. Non-tender and non- distended. No evidence of peritonitis. EXTREMITITES: No edema. Objective - Vital Signs Vital signs: Vital Signs Temp 97.9 F 11/27/16 07:00 Pulse 52 L 11/27/16 08:00 Resp 18 11/27/16 08:00 BP 138/79 11/27/16 07:00 Pulse Ox 98 11/27/16 07:46 Intake & Output 11/26/16 11/27/16 11/27/16 18:59 06:59 18:59 Intake Total 1040 240 Output Total 800 Balance 240 240 Weight 111 kg 111 kg Intake: Intake, IV Titration 0 Amount Sodium Chloride 0.9% 1, 0 000 ml @ 20 mls/hr IV . Q24H [facility] Rx#:[id number] Oral 1040 240 Output: Urine 800 Other: Voiding Method Urinal Urinal Toilet # Voids 1 2 - Labs CBC & Chem 7: 11/25/16 05:35 11/25/16 05:35 Labs: Abnormal Lab Results - Last 24 Hours (Table) 11/26/16 11/26/16 11/26/16 Range/Units 11:02 17:40 20:06 POC Glucose (mg/dL) 198 H 143 H 232 H (75-99) mg/dL Assessment and Plan Plan: Assessment: #1. Chronic kidney disease stage III secondary to cardiorenal syndrome. Recent creatinine is in the range of 2.1-2.4. Prior urinalysis has been quite benign. GFR at baseline. #2. Hyperkalemia secondary to underlying chronic kidney disease and from the use of Aldactone. Improved with medical treatment. Blood sugars tend to be labile. No evidence of metabolic acidosis. #3. Volume overload. Improved. #4. Systolic CHF with ejection fraction of 30-35% with severe tricuspid regurgitation. Plan: Continue Lasix 40 mg orally twice daily. Maintain low potassium diet and 1.2 L fluid restriction. Kayexalate 40 mg orally once today. Continue to hold Aldactone for now. Avoid nephrotoxic agents and hypotensive episodes. Potential discharge today. He will need to follow-up as an outpatient in the next 2 weeks for CKD care.
--- NOTE | 2016-11-27 16:09 | P.DS ---
<Peggy Fallon - Last Filed: 11/27/16 16:04> Providers Date of admission: 11/20/16 11:10 Expected date of discharge: 11/27/16 Attending physician: Bong Pitt Consults: 11/20/16 17:54 Consult Physician Routine Consulting Provider: Lionel Rice Consult Reason/Comments: arf Do you want consulting provider notified?: Yes Primary care physician: Stated None Dr. Denise Hospital Course: Final Diagnoses: 1. Acute on chronic systolic CHF exacerbation, EF 30-35%. 2. [ Acute on chronic kidney disease, stage III]. 3. [ Hyperkalemia secondary to acute renal failure]. 4. [ Acute COPD exacerbation]. 5. Chronic paroxysmal atrial fibrillation 6. Moderate to severe pulmonary hypertension 7. Severe Tricuspid regurgitation 8. Diabetes mellitus, hemoglobin A1c 7.1 Hospital course:This is a 71-year-old gentleman admitted with acute CHF exacerbation, acute COPD exacerbation,acute on chronic renal failure and multiple other medical issues. Evaluated by cardiology and nephrology. Maintained on nebulized bronchodilators, antibiotics, steroids. Diuresed well on Lasix. significant clinical improvement. Echo reporting severe tricuspid regurgitation, moderate to severe pulmonary hypertension, severe global hypo- kinesis of LV, EF between 30 and 35%.patient has been cleared by all consults for discharge. Patient is being discharged home in a stable condition with guarded prognosis. The impression and plan of care has been dictated as directed as a scribe. : I performed a H&P examination of this patient and discussed the same with the dictator. I agree with the dictator's note. Any additional findings/opinions/ etc. will be noted. Patient Condition at Discharge: Stable Plan - Discharge Summary New Discharge Prescriptions: New Furosemide [Lasix] 40 mg PO BID@0900,1600 #60 tab Budesonide-Formot 160-4.5 Mcg [Symbicort 160-4.5 Mcg Inhaler] 2 puff INHALATION RT-BID #1 inh Nicotine 14Mg/24Hr Patch [Habitrol] 1 patch TRANSDERM DAILY #30 patch predniSONE 10 mg PO DIRECTED #18 tab Continue Levothyroxine Sodium [Synthroid] 50 mcg PO DAILY Amiodarone HCl [Pacerone] 200 mg PO BID Carvedilol [Coreg] 3.125 mg PO BID-W/MEALS Apixaban [Eliquis] 2.5 mg PO BID Discontinued Spironolactone [Aldactone] 25 mg PO TID Discharge Medication List Levothyroxine Sodium [Synthroid] 50 mcg PO DAILY 09/24/15 [History] Amiodarone HCl [Pacerone] 200 mg PO BID 12/28/15 [History] Carvedilol [Coreg] 3.125 mg PO BID-W/MEALS 12/28/15 [History] Apixaban [Eliquis] 2.5 mg PO BID 11/20/16 [History] Furosemide [Lasix] 40 mg PO BID@0900,1600 #60 tab 11/26/16 [Rx] Budesonide-Formot 160-4.5 Mcg [Symbicort 160-4.5 Mcg Inhaler] 2 puff INHALATION RT-BID #1 inh 11/27/16 [Rx] Nicotine 14Mg/24Hr Patch [Habitrol] 1 patch TRANSDERM DAILY #30 patch 11/27/16 [ Rx] predniSONE 10 mg PO DIRECTED #18 tab 11/27/16 [Rx] Follow up Appointment(s)/Referral(s): Allison Denise MD [REFERRING] - 11/30/16 1:50 pm Lionel Rice DO [STAFF PHYSICIAN] - 1 Week (Dr. Rice's office will call patient with an appointment date and time.) Ambulatory/Diagnostic Orders: Complete Blood Count w/diff [LAB.AMB] Time Frame: 3 Days, Location: Determined By Patient Patient Instructions/Handouts: Furosemide (By mouth), Heart Failure (DC), COPD (Chronic Obstructive Pulmonary Disease) (DC) Activity/Diet/Wound Care/Special Instructions: Confirm cardiology follow-up appointment prior to discharge. Case management to arrange for glucometer, supplies Accu-Cheks before meals and at bedtime, maintain log and take to follow-up visit with PCP for further recommendations Diet: Consistent carb, cardiac, 1200 mL fluid restrictions per 24 hours,TOMER, "CHF DIET" Activity: Limited until follow up CHF DISCHARGE INSTRUCTIONS No ELAINE inhibitor secondary to renal function Discharge Disposition: HOME SELF-CARE <Bong Pitt - Last Filed: 11/28/16 01:26> Hospital Course: Patient was seen and examined with TIMBER SKIDDER and agree with findings. Results reviewed.
--- NOTE | 2016-11-28 00:22 | P.PN ---
Subjective Principal diagnosis: Acute CHF exacerbation Interval history: This a 71-year-old gentleman admitted with acute CHF exacerbation, acute on chronic renal failure and multiple other medical issues. Received Kayexalate with improvement in potassium, currently down to 5.5. Evaluated by cardiology and nephrology with recommendations noted. Diuresing well on Lasix IV push with 24-hour I&O reflecting a negative fluid balance. Increased wheezing today. Telemetry sinus rhythm with first-degree AV block. Echo reporting severe tricuspid regurgitation, moderate to severe pulmonary hypertension, severe global hypo-kinesis of LV, EF between 30 and 35%. 11/22/16: Complains of shortness of breath, wheezing. Maintained on fluid restrictions, low potassium diet. Aldactone remains on hold with Potassium improved currently at 4.8. Diuresing well on Lasix IV push with 24-hour I&O reflecting a negative fluid balance. Magnesium 1.4, receiving supplements. 11/23/16: Maintained on fluid restrictions, steroids, nebulized bronchodilators. Wheezing, shortness of breath, improving. Diuresing well on Lasix IV push with 24-hour I&O reflecting a negative fluid balance. Renal function improving. Magnesium 1.8, potassium 5.3. Elevated blood sugars, hemoglobin A1c 6.9. 11/24/2016 Breathing continues to improve. Diuresing well with 24-hour I&O reflecting a negative fluid balance. Standing renal function, IV push Lasix converted to oral. Potassium 5.6, receiving Kayexalate. Denies chest pain, palpitations. 11/25/2016 maintained on oral Lasix, fluid restrictions, nebulized bronchodilators,oral steroids, breathing much improved, no wheezing, trace edema. Ambulating to and from bathroom , tolerating exertion well. Denies chest pain, palpitations or increasing shortness of breath. 11/26/2016. Patient did improve clinically. Continue to be on oral Lasix and spironolactone and breathing treatments. Ambulating well. Anticipate discharge to rehab tomorrow. Objective - Vital Signs Vital signs: Vital Signs Temp 97.1 F L 11/25/16 22:00 Pulse 64 11/26/16 21:17 Resp 18 11/26/16 15:17 BP 142/76 11/26/16 15:00 Pulse Ox 96 11/26/16 21:05 Intake & Output 11/26/16 11/26/16 11/27/16 06:59 18:59 06:59 Intake Total 354 1040 Output Total 1010 800 Balance -656 240 Weight 111 kg 111 kg Intake: Intake, IV Titration 0 Amount Sodium Chloride 0.9% 1, 0 000 ml @ 20 mls/hr IV . Q24H [facility] Rx#:[id number] Oral 354 1040 Output: Urine 1010 800 Other: Voiding Method Urinal Urinal # Voids 1 1 - Exam GENERAL: [Sitting up at side of bed, no acute distress HEENT: [Pupils equal conjunctiva normal. Oral mucosa moist] NECK: [Supple, no JVD] RESPIRATORY EFFORT:[ normal] LUNGS: [Bilateral bases diminished, no wheezing ,rhonchi or crackles] CARDIOVASCULAR[ regular S1 and S2, positive systolic murmur, no rubs or gallops , trace edema] GI: [Abdomen soft, nontender, positive bowel sounds.] PSYCH: [Alert and oriented -3, mood and affect normal.] NEURO: No focal deficits, moves all 4 extremities, strength and sensation grossly intact - Labs CBC & Chem 7: 11/25/16 05:35 11/25/16 05:35 Labs: Abnormal Lab Results - Last 24 Hours (Table) 11/26/16 11/26/16 11/26/16 Range/Units 07:45 11:02 17:40 POC Glucose (mg/dL) 105 H 198 H 143 H (75-99) mg/dL 11/26/16 Range/Units 20:06 POC Glucose (mg/dL) 232 H (75-99) mg/dL Assessment and Plan Plan: 1. Acute on chronic systolic CHF exacerbation, EF 30-35%. 2. [ Acute on chronic kidney disease, stage III]. 3. [ Hyperkalemia secondary to acute renal failure]. 4. [ Acute COPD exacerbation]. 5. Chronic paroxysmal atrial fibrillation 6. Moderate to severe pulmonary hypertension 7. Severe Tricuspid regurgitation Plan: Continue on current medication regime , oral Lasix, oral steroids, nebulized bronchodilators ,monitoring and symptomatic treatment. Maintain fluid restrictions. Close monitoring of electrolytes with repeat labs ordered for a.m. Lantus dose increased yesterday, better controlled today, close monitoring of Accu-Cheks. Patient is currently homeless, case management has arranged for senior housing with application to be processed on Sunday. Transfer to [facility]. Discharge planning in progress.
== END 2016-11-27 11:30 | disposition home or self-care (01) | DRG 291 ==
LOC: EC 07:15 → 6SEL 11:10 → 5MS5E 11-25 21:54
PROVIDERS: ADMIT Internal Medicine; ATTEND Internal Medicine
DX: I13.0 Hypertensive heart and chronic kidney disease with heart failure and stage 1 through stage 4 chronic kidney disease, or unspecified chronic kidney disease (principal); I50.23 Acute on chronic systolic (congestive) heart failure; N17.9 Acute kidney failure, unspecified; E11.22 Type 2 diabetes mellitus with diabetic chronic kidney disease; I42.9 Cardiomyopathy, unspecified; E11.65 Type 2 diabetes mellitus with hyperglycemia; J44.1 Chronic obstructive pulmonary disease with (acute) exacerbation; E87.1 Hypo-osmolality and hyponatremia; I27.2 Other secondary pulmonary hypertension; I07.1 Rheumatic tricuspid insufficiency; F17.200 Nicotine dependence, unspecified, uncomplicated; I25.2 Old myocardial infarction; I44.0 Atrioventricular block, first degree; I48.0 Paroxysmal atrial fibrillation; I48.2 Chronic atrial fibrillation; K21.9 Gastro-esophageal reflux disease without esophagitis; E78.5 Hyperlipidemia, unspecified; T50.0X5A Adverse effect of mineralocorticoids and their antagonists, initial encounter; E87.5 Hyperkalemia; N18.3 Chronic kidney disease, stage 3 (moderate); Z79.01 Long term (current) use of anticoagulants; Z82.49 Family history of ischemic heart disease and other diseases of the circulatory system; Z86.73 Personal history of transient ischemic attack (TIA), and cerebral infarction without residual deficits; Z95.810 Presence of automatic (implantable) cardiac defibrillator; Z59.0 Homelessness
CPT/HCPCS: 36415; 71020; 80048; 80051; 80053; 82550; 82553; 83036; 83735; 83880; 84484; 85025; 85610; 85730; 87324; 93005; 93306; 94640; 94760; 96374; 96375; 99285; 99291

== ENCOUNTER 2016-12-13 21:21 | Inpatient (IN) | payer MEDICARE, OTHER ==
[2016-12-13 22:06] LABS: Anisocytosis Slight; Basophils % (A) 1 %; CH 31.4; CHCM 31.5; Eosinophils # (A) 0.4 k/uL (0-0.7); Eosinophils % (A) 6 %; HCT 45.6 % (39.0-53.0); HDW 2.79; HGB 14.1 gm/dL (13.0-17.5); Hypochromasia Slight; Luc # (Auto) 0.17; Luc % (Auto) 2; Lymphocytes # (A) 1.3 k/uL (1.0-4.8); Lymphocytes % (A) 17 %; MCH 31.1 pg (25.0-35.0); MCV 100.3 fL (80.0-100.0); Macrocytosis Slight; Mean Platelet Volume 7.7; Monocytes # (A) 0.4 k/uL (0-1.0); Monocytes % (A) 5 %; Neutrophils # (A) 5.3 k/uL (1.3-7.7); Neutrophils % (A) 70 %; RBC 4.54 m/uL (4.30-5.90); RDW 17.2 % (11.5-15.5); WBC 7.6 k/uL (3.8-10.6); WBC (Perox) 7.36
[2016-12-13 22:15] LABS: INR 1.2 (<1.2); Partial Thromboplastin Time 23.6 sec (22.0-30.0); Prothrombin Time 12.2 sec (9.0-12.0)
--- NOTE | 2016-12-13 22:22 | XR ---
EXAM: XR Chest, 2 Views CLINICAL HISTORY: Reason: difficulty breathing TECHNIQUE: Frontal and lateral views of the chest. COMPARISON: Chest x-ray 11/24/16 FINDINGS: Lungs: Bilateral perihilar interstitial prominence, likely mild central pulmonary edema. No focal consolidation. Unchanged dense nodular opacity at the right lung base, measuring 7 mm, likely calcified granuloma. Pleural space: No pleural effusion. No pneumothorax. Heart: Cardiomegaly. Mediastinum: Unremarkable. Bones/joints: No acute findings. Tubes, lines and devices: Left chest wall cardiac pacer/AICD. IMPRESSION: Cardiomegaly with mild central pulmonary edema.
[2016-12-13 22:46] LABS: Creatine Kinase MB 4.6 ng/mL (0.0-2.4); Troponin I 0.073 ng/mL (0.000-0.034)
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
[2016-12-13 22:59] LABS: Calcium 8.6 mg/dL (8.4-10.2); Magnesium 2.1 mg/dL (1.6-2.3); Total Bilirubin 0.3 mg/dL (0.2-1.3); Total Protein 6.2 g/dL (6.3-8.2)
[2016-12-13] MEDS ORDERED: CALCIUM GLUCONATE 1,000 MG in SODIUM CHLORIDE 0.9% 100 ML IVPB ONE (23:08)
[2016-12-13] MEDS ORDERED: SODIUM POLYSTYRENE SULFONATE 15 GM/60 ML BOTTLE PO ONE (23:08)
[2016-12-13] MEDS ORDERED: INSULIN REGULAR 100 UNIT/ML VIAL IV ONE (23:08)
[2016-12-13] MEDS ORDERED: DEXTROSE 50%-WATER 50 ML SYRINGE IVP ONE (23:08)
[2016-12-13] MEDS ORDERED: ALBUTEROL NEBULIZED 2.5 MG/3 ML INHALATION STA (23:09)
[2016-12-13 23:16] LABS: Potassium 6.4 mmol/L (3.5-5.1)
[2016-12-13] MEDS ORDERED: FUROSEMIDE 10 MG/ML 4 ML VIAL IV STA (23:22)
[2016-12-13] MEDS ORDERED: ONDANSETRON 4 MG/2 ML VIAL IVP PRN (23:28)
[2016-12-13] MEDS ORDERED: ACETAMINOPHEN TAB 325 MG TAB PO PRN (23:28)
[2016-12-13] MEDS ORDERED: NALOXONE 0.4 MG/ML 1 ML VIAL IV PRN (23:28)
[2016-12-13] MEDS ORDERED: IPRATROPIUM-ALBUTEROL 3 ML NEB INHALATION PRN (23:52)
[2016-12-14] MEDS ORDERED: IPRATROPIUM-ALBUTEROL 3 ML NEB INHALATION SCH
[2016-12-14 01:01] VITALS: BMI 33.8
[2016-12-14] MEDS: MORPHINE SULFATE 4 MG/ML SYRINGE IV PRN ×2 (04:08→09:49)
[2016-12-14 05:00] LABS: Creatine Kinase MB 4.7 ng/mL (0.0-2.4); Troponin I 0.077 ng/mL (0.000-0.034)
[2016-12-14 05:56] VITALS: TEMP 97
[2016-12-14] MEDS ORDERED: LEVOTHYROXINE 50 MCG TAB PO SCH (06:30)
[2016-12-14 06:46] LABS: Glucose,Whole Blood 111 mg/dL (75-99)
[2016-12-14] MEDS: glipiZIDE 5 MG TAB PO SCH ×2 (06:47→17:44)
[2016-12-14] MEDS: CARVEDILOL 3.125 MG TAB PO SCH ×2 (06:48→17:44)
[2016-12-14] MEDS: IPRATROPIUM-ALBUTEROL 3 ML NEB INHALATION SCH ×3 (07:50→15:16)
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
[2016-12-14] MEDS ORDERED: METOLAZONE 2.5 MG TAB PO SCH (09:00)
[2016-12-14] MEDS ORDERED: FUROSEMIDE 10 MG/ML 4 ML VIAL IV SCH (09:00)
[2016-12-14] MEDS ORDERED: ALLOPURINOL 100 MG TAB PO SCH (09:00)
[2016-12-14] MEDS: APIXABAN 2.5 MG TABLET PO SCH ×2 (09:08→17:44)
[2016-12-14] MEDS: AMIODARONE 200 MG TAB PO SCH ×2 (09:09→17:44)
[2016-12-14] MEDS: FUROSEMIDE 40 MG TAB PO SCH ×2 (09:49→17:43)
[2016-12-14 09:50] LABS: Anisocytosis Slight; Basophils % (A) 0 %; CH 29.9; CHCM 29.9; Eosinophils # (A) 0.3 k/uL (0-0.7); Eosinophils % (A) 5 %; HCT 43.2 % (39.0-53.0); HDW 2.69; HGB 13.2 gm/dL (13.0-17.5); Hypochromasia Marked; Luc # (Auto) 0.17; Luc % (Auto) 2; Lymphocytes # (A) 1.1 k/uL (1.0-4.8); Lymphocytes % (A) 16 %; MCH 30.8 pg (25.0-35.0); MCHC 30.5 g/dL (31.0-37.0); Macrocytosis Slight; Mean Platelet Volume 7.3; Monocytes # (A) 0.3 k/uL (0-1.0); Monocytes % (A) 5 %; Neutrophils # (A) 4.9 k/uL (1.3-7.7); Neutrophils % (A) 71 %; RBC 4.28 m/uL (4.30-5.90); RDW 16.4 % (11.5-15.5); WBC 6.9 k/uL (3.8-10.6); WBC (Perox) 7.07
[2016-12-14 10:12] LABS: Calcium 8.4 mg/dL (8.4-10.2); Magnesium 1.9 mg/dL (1.6-2.3); Potassium 5.4 mmol/L (3.5-5.1); Total Bilirubin 0.3 mg/dL (0.2-1.3); Total Protein 5.5 g/dL (6.3-8.2)
[2016-12-14 10:45] LABS: Creatine Kinase MB 4.9 ng/mL (0.0-2.4); Troponin I 0.071 ng/mL (0.000-0.034)
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
[2016-12-14 11:45] VITALS: BP 136/77; PULSE 55; RESP 16
[2016-12-14 11:53] LABS: Glucose,Whole Blood 93 mg/dL (75-99)
[2016-12-14 16:56] LABS: Glucose,Whole Blood 100 mg/dL (75-99)
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
== END 2016-12-14 18:25 | disposition home health service (06) | DRG 291 ==
LOC: EC 21:21 → 6SEL 23:28
PROVIDERS: ADMIT Hospitalist; ATTEND Hospitalist
DX: I13.0 Hypertensive heart and chronic kidney disease with heart failure and stage 1 through stage 4 chronic kidney disease, or unspecified chronic kidney disease (principal); I50.23 Acute on chronic systolic (congestive) heart failure; I27.2 Other secondary pulmonary hypertension; I42.9 Cardiomyopathy, unspecified; E87.5 Hyperkalemia; J44.9 Chronic obstructive pulmonary disease, unspecified; N18.3 Chronic kidney disease, stage 3 (moderate); I48.2 Chronic atrial fibrillation; I44.0 Atrioventricular block, first degree; I36.1 Nonrheumatic tricuspid (valve) insufficiency; I34.0 Nonrheumatic mitral (valve) insufficiency; T50.0X5A Adverse effect of mineralocorticoids and their antagonists, initial encounter; K21.9 Gastro-esophageal reflux disease without esophagitis; I25.2 Old myocardial infarction; E03.9 Hypothyroidism, unspecified; M54.5 Low back pain; R26.2 Difficulty in walking, not elsewhere classified; G89.29 Other chronic pain; R48.0 Dyslexia and alexia; R74.8 Abnormal levels of other serum enzymes; E78.5 Hyperlipidemia, unspecified; F17.210 Nicotine dependence, cigarettes, uncomplicated; Z79.01 Long term (current) use of anticoagulants; Z83.3 Family history of diabetes mellitus; Z86.73 Personal history of transient ischemic attack (TIA), and cerebral infarction without residual deficits; Z82.49 Family history of ischemic heart disease and other diseases of the circulatory system; Z95.810 Presence of automatic (implantable) cardiac defibrillator; Z59.0 Homelessness; Z79.84 Long term (current) use of oral hypoglycemic drugs; Z79.899 Other long term (current) drug therapy; Z71.3 Dietary counseling and surveillance; Z84.1 Family history of disorders of kidney and ureter; Z90.49 Acquired absence of other specified parts of digestive tract; Z91.11 Patient's noncompliance with dietary regimen; Z55.0 Illiteracy and low-level literacy; Z86.79 Personal history of other diseases of the circulatory system; Z86.19 Personal history of other infectious and parasitic diseases; Z87.09 Personal history of other diseases of the respiratory system; Z91.14 Patient's other noncompliance with medication regimen; Z87.820 Personal history of traumatic brain injury; Z86.2 Personal history of diseases of the blood and blood-forming organs and certain disorders involving the immune mechanism
CPT/HCPCS: 36415; 71020; 80053; 82550; 82553; 83735; 83880; 84132; 84484; 85025; 85610; 85730; 93005; 96374; 96375; 99291

== ENCOUNTER 2017-02-12 10:24 | Inpatient (IN) | payer MEDICARE ==
[2017-02-12] MEDS ORDERED: IPRATROPIUM-ALBUTEROL 3 ML NEB INHALATION STA (10:36)
[2017-02-12] MEDS ORDERED: methylPREDNISolone SOD SUCCI 125 MG/2 ML VIAL IV STA (10:36)
[2017-02-12] MEDS ORDERED: RX INFO: IV CONTRAST WAS GIVEN 1 EACH MISC MISCELLANE PRN (10:37)
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
[2017-02-12 11:13] LABS: Anisocytosis Slight; Basophils % (A) 0 %; CH 29.4; CHCM 29.8; Eosinophils # (A) 0.3 k/uL (0-0.7); Eosinophils % (A) 4 %; HDW 2.72; HGB 13.7 gm/dL (13.0-17.5); Hypochromasia Marked; Luc # (Auto) 0.21; Luc % (Auto) 2; Lymphocytes # (A) 1.8 k/uL (1.0-4.8); Lymphocytes % (A) 18 %; MCH 30.3 pg (25.0-35.0); MCHC 30.4 g/dL (31.0-37.0); MCV 99.5 fL (80.0-100.0); Macrocytosis Slight; Mean Platelet Volume 8.2; Monocytes # (A) 0.4 k/uL (0-1.0); Monocytes % (A) 4 %; Neutrophils # (A) 7.1 k/uL (1.3-7.7); Neutrophils % (A) 72 %; RBC 4.52 m/uL (4.30-5.90); RDW 17.9 % (11.5-15.5); WBC 9.9 k/uL (3.8-10.6); WBC (Perox) 10.56
[2017-02-12 11:22] LABS: INR 1.2 (<1.2); Partial Thromboplastin Time 24.9 sec (22.0-30.0)
[2017-02-12 11:25] LABS: Calcium 8.8 mg/dL (8.4-10.2); Potassium 5.6 mmol/L (3.5-5.1); Total Bilirubin 0.3 mg/dL (0.2-1.3); Total Protein 6.6 g/dL (6.3-8.2)
[2017-02-12 11:51] LABS: Creatine Kinase MB 9.4 ng/mL (0.0-2.4); Troponin I 0.067 ng/mL (0.000-0.034)
--- NOTE | 2017-02-12 12:00 | XR ---
EXAMINATION TYPE: XR chest 2V DATE OF EXAM: 02/12/2017 COMPARISON: Prior chest x-ray 12/13/2016 HISTORY: Difficulty breathing TECHNIQUE: Frontal and lateral views of the chest are obtained. FINDINGS: There is no focal air space opacity, pleural effusion, or pneumothorax seen. Perihilar vas cular indistinctness suspected. Mild prominence of the central vascularity as on prior exam. There ar e overlying cardiac leads. Intracardiac defibrillator is stable. The cardiac silhouette size is stabl e. The lungs are hyperinflated. The osseous structures are intact. IMPRESSION: There may be a component of pulmonary venous hypertension and early interstitial edema. Technique exam somewhat limited. Follow-up suggested.
--- NOTE | 2017-02-12 12:03 | CT ---
EXAMINATION TYPE: CT abdomen pelvis wo con DATE OF EXAM: 02/12/2017 COMPARISON: 08/21/2015 HISTORY: Patient poor historian. Patient complains of difficulty breathing. Left flank pain. CT DLP: 1001.9 mGycm Automated exposure control for dose reduction was used. TECHNIQUE: Helical acquisition of images was performed from the lung bases through the pelvis. FINDINGS: Lack of intravenous and oral contrast limits evaluation of both the hollow and solid viscer a. LUNG BASES: Motion artifact limits evaluation of the lung bases for subcentimeter pulmonary nodules. Bibasilar subsegmental dependent atelectasis and calcified right lower lobe granuloma are noted. LIVER/GB: No significant abnormality is appreciated. PANCREAS: Diffuse mild pancreatic frontal atrophy. No ductal dilatation. SPLEEN: No significant abnormality is seen. ADRENALS: No significant abnormality is seen. KIDNEYS: No evidence of nephrolithiasis or hydronephrosis within either kidney. No calculus along the course of the ureter or within the urinary bladder. FREE AIR: No free air is visualized RETROPERITONEAL ADENOPATHY: None visualized REPRODUCTIVE ORGANS: No significant abnormality is seen URINARY BLADDER: No significant abnormality is seen. PELVIC ADENOPATHY: None visualized. OSSEOUS STRUCTURES: Multilevel degenerative change of the thoracolumbar spine is mild in degree. BOWEL: No significant abnormality is seen. OTHER: Abdominal aorta is mildly enlarged focally measuring 3.3 x 3.0 by 3.8 cm, infrarenally. This i s stable from the prior exam of 08/21/2015. IMPRESSION: 1. No acute process 2 correspond to the patient's clinical symptom of left flank pain. No evidence of nephrolithiasis or hydronephrosis. No obstructive uropathy. 2. Infrarenal abdominal aortic aneurysm measuring 3.3 x 3.0 x 3.8 cm, stable from the prior exam.
[2017-02-12] MEDS ORDERED: FUROSEMIDE 10 MG/ML 4 ML VIAL IV STA (14:01)
[2017-02-12] MEDS ORDERED: IPRATROPIUM-ALBUTEROL 3 ML NEB INHALATION PRN (14:01)
[2017-02-12] MEDS ORDERED: SODIUM POLYSTYRENE SULFONATE 15 GM/60 ML BOTTLE PO STA (14:50)
[2017-02-12] MEDS ORDERED: ACETAMINOPHEN TAB 325 MG TAB PO PRN (14:50)
[2017-02-12] MEDS ORDERED: NITROGLYCERIN SL TABS 0.4 MG TAB SUBLINGUAL PRN (14:51)
[2017-02-12 15:06] VITALS: BMI 34.4
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
[2017-02-12] MEDS: IPRATROPIUM-ALBUTEROL 3 ML NEB INHALATION SCH ×2 (15:34→20:02)
[2017-02-12] MEDS: FUROSEMIDE 40 MG TAB PO SCH (16:14)
[2017-02-12] MEDS: FAMOTIDINE 20 MG TAB PO SCH (16:14)
[2017-02-12 16:37] LABS: Glucose,Whole Blood 274 mg/dL (75-99)
[2017-02-12] MEDS: glipiZIDE 5 MG TAB PO SCH (17:17)
[2017-02-12] MEDS: CARVEDILOL 3.125 MG TAB PO SCH (17:17)
[2017-02-12] MEDS ORDERED: methylPREDNISolone SOD SUCCI 125 MG/2 ML VIAL IV SCH (18:00)
[2017-02-12] MEDS: APIXABAN 2.5 MG TABLET PO SCH (20:52)
[2017-02-12] MEDS: guaiFENesin 600 MG TABLET.ER PO SCH (20:52)
[2017-02-12] MEDS ORDERED: HEPARIN SODIUM,PORCINE 5,000 UNIT/ML 1 ML VIAL SQ SCH (21:00)
[2017-02-12 21:04] LABS: Glucose,Whole Blood 266 mg/dL (75-99)
[2017-02-12] MEDS: INSULIN LISPRO (humaLOG) 300 UNIT/3 ML VIAL SQ SCH (22:29)
[2017-02-13 06:09] LABS: Glucose,Whole Blood 106 mg/dL (75-99)
[2017-02-13] MEDS: INSULIN LISPRO (humaLOG) 300 UNIT/3 ML VIAL SQ SCH ×4 (06:25→21:22)
[2017-02-13] MEDS: glipiZIDE 5 MG TAB PO SCH ×2 (06:26→17:01)
[2017-02-13] MEDS: CARVEDILOL 3.125 MG TAB PO SCH ×2 (06:26→17:01)
[2017-02-13 06:39] LABS: Anisocytosis Slight; Basophils % (A) 0 %; CH 30.4; CHCM 29.7; Eosinophils # (A) 0.1 k/uL (0-0.7); Eosinophils % (A) 1 %; HCT 48.4 % (39.0-53.0); HDW 2.66; HGB 13.9 gm/dL (13.0-17.5); Hypochromasia Marked; Luc # (Auto) 0.15; Luc % (Auto) 1; Lymphocytes # (A) 1.5 k/uL (1.0-4.8); Lymphocytes % (A) 9 %; MCH 29.8 pg (25.0-35.0); MCHC 28.8 g/dL (31.0-37.0); MCV 103.5 fL (80.0-100.0); Macrocytosis Moderate; Mean Platelet Volume 7.6; Monocytes # (A) 0.5 k/uL (0-1.0); Monocytes % (A) 3 %; Neutrophils # (A) 13.9 k/uL (1.3-7.7); Neutrophils % (A) 86 %; RBC 4.67 m/uL (4.30-5.90); RDW 16.7 % (11.5-15.5); WBC 16.2 k/uL (3.8-10.6); WBC (Perox) 15.96
[2017-02-13 07:01] LABS: Potassium 5.9 mmol/L (3.5-5.1)
[2017-02-13] MEDS: IPRATROPIUM-ALBUTEROL 3 ML NEB INHALATION SCH ×4 (07:38→18:43)
[2017-02-13] MEDS: METOLAZONE 2.5 MG TAB PO SCH (08:30)
[2017-02-13] MEDS: predniSONE 20 MG TAB PO SCH (08:30)
[2017-02-13] MEDS: LORATADINE 10 MG TAB PO SCH (08:30)
[2017-02-13] MEDS: guaiFENesin 600 MG TABLET.ER PO SCH ×2 (08:30→21:16)
[2017-02-13] MEDS: ALLOPURINOL 100 MG TAB PO SCH (08:30)
[2017-02-13] MEDS: AMIODARONE 200 MG TAB PO SCH (08:30)
[2017-02-13] MEDS: NICOTINE 14MG/24HR PATCH TRANSDERM SCH (08:30)
[2017-02-13] MEDS: APIXABAN 2.5 MG TABLET PO SCH ×2 (08:30→21:16)
[2017-02-13] MEDS: FAMOTIDINE 20 MG TAB PO SCH (08:30)
[2017-02-13] MEDS: FUROSEMIDE 40 MG TAB PO SCH (08:30)
[2017-02-13 11:34] LABS: Glucose,Whole Blood 188 mg/dL (75-99)
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
--- NOTE | 2017-02-13 14:19 | P.PN ---
Subjective Progress Note Date: 02/13/17 71 years old gentleman with past medical history of congestive heart failure, nonischemic cardiomyopathy with ejection fraction last reported 35% status post AICD placement, chronic kidney disease, COPD, atrial fibrillation paroxysmal, history of stroke, hyperlipidemia hypertension, hypothyroidism, history of [place] presents with shortness of breath on exertion associated with chest tightness that comes and goes. Patient states that symptoms started one month ago with cough with phlegm production. Patient went to her primary care physician who prescribed Robitussin which helped with the cough. Patient stated that shortness of breath has worsened in the past few weeks. Patient endorses left flank pain which is chronic, CT abdomen was done in the ER which was negative for any acute abnormality. Pancreatic atrophy was seen. EKG suggestive of some T-wave abnormality otherwise patient in sinus rhythm with first-degree AV block. Troponin is elevated at 0.067, creatinine is baseline of 1.8. BNP slightly elevated 3600. Potassium is elevated at 5.6. Patient was recommended not to take Aldactone in the last hospital visit in December 2016. It appears patient is homeless and has difficulty managing his medication and was taking Aldactone regardless. Patient received 1 treatment of nebulization and feels better. Lasix 40 mg IV 1 dose given. Patient will be observed overnight, troponin will be trended. Patient will be started on home regimen of Lasix 40 mg twice a day along with Zaroxolyn. Aldactone will be held. Repeat BMP in a.m. Continue telemetry overnight. 02/13: White count is at 16.2. Potassium is 5.9 with BUN 42 and creatinine 1.82. Repeat troponins were 0.058 and 0.067. Sputum culture remains on collected. Patient is complaining of difficulty swallowing both liquids and solid food and speech therapy has been added. Patient was seen by cardiology for elevated troponins and acute coronary syndrome has been ruled out. Dr. Peña has placed him on IV Lasix 40 mg every [address] Peña would like to start him on Entresto but there is concern whether he will be able to afford this due to his homeless status. commercial lines account manager has been updated and will check and options. At this point, it does not seem to be an option for him. Anticipate discharge tomorrow. Objective - Vital Signs Vital signs: Vital Signs Temp 96.5 F L 02/13/17 08:00 Pulse 80 02/13/17 08:00 Resp 18 02/13/17 08:00 BP 171/81 02/13/17 08:00 Pulse Ox 97 02/13/17 08:00 Intake & Output 02/12/17 02/13/17 02/13/17 18:59 06:59 18:59 Intake Total 360 200 180 Output Total 400 Balance -40 200 180 Weight 115.4 kg 113 kg Intake: Oral 360 200 180 Output: Urine 400 Other: # Voids 1 1 - Exam General appearance: cooperative, no acute distress, obese - EENT Eyes: anicteric sclerae, PERRLA, normal appearance ENT: hearing grossly normal - Neck Neck: no lymphadenopathy, normal ROM, no other, no rigidity, no stridor, no thyromegaly - Respiratory Respiratory: bilateral: CTA, negative: diminished, dullness, rales, rhonchi - Cardiovascular Rhythm: regular Heart sounds: normal: S1, S2 Abnormal Heart Sounds: no systolic murmur, no diastolic murmur, no rub, no S3 Gallop, no S4 Gallop, no click, no other - Gastrointestinal General gastrointestinal: normal bowel sounds, soft - Integumentary Integumentary: no rash - Neurologic Neurologic: CNII-XII intact - Musculoskeletal Musculoskeletal: gait normal, strength equal bilaterally - Psychiatric Psychiatric: A&O x's 3, appropriate affect - Labs CBC & Chem 7: 02/13/17 06:18 02/13/17 06:18 Labs: Abnormal Lab Results - Last 24 Hours (Table) 02/12/17 02/12/17 02/12/17 Range/Units 11:04 11:04 11:04 WBC (3.8-10.6) k/uL MCV (80.0-100.0) fL MCHC 30.4 L (31.0-37.0) g/dL RDW 17.9 H (11.5-15.5) % Neutrophils # (1.3-7.7) k/uL INR (<1.2) Potassium 5.6 H (3.5-5.1) mmol/L Chloride 114 H (98-107) mmol/L BUN 32 H (9-20) mg/dL Creatinine 1.82 H (0.66-1.25) mg/dL Glucose 100 H (74-99) mg/dL POC Glucose (mg/dL) (75-99) mg/dL Total Creatine Kinase 1115 H (55-170) U/L CK-MB (CK-2) 9.4 H* (0.0-2.4) ng/mL Troponin I 0.067 H* (0.000-0.034) ng/mL 02/12/17 02/12/17 02/12/17 Range/Units 11:04 15:20 16:35 WBC (3.8-10.6) k/uL MCV (80.0-100.0) fL MCHC (31.0-37.0) g/dL RDW (11.5-15.5) % Neutrophils # (1.3-7.7) k/uL INR 1.2 H (<1.2) Potassium (3.5-5.1) mmol/L Chloride (98-107) mmol/L BUN (9-20) mg/dL Creatinine (0.66-1.25) mg/dL Glucose (74-99) mg/dL POC Glucose (mg/dL) 274 H (75-99) mg/dL Total Creatine Kinase (55-170) U/L CK-MB (CK-2) (0.0-2.4) ng/mL Troponin I 0.058 H* (0.000-0.034) ng/mL 02/12/17 02/12/17 02/13/17 Range/Units 21:00 23:26 06:06 WBC (3.8-10.6) k/uL MCV (80.0-100.0) fL MCHC (31.0-37.0) g/dL RDW (11.5-15.5) % Neutrophils # (1.3-7.7) k/uL INR (<1.2) Potassium (3.5-5.1) mmol/L Chloride (98-107) mmol/L BUN (9-20) mg/dL Creatinine (0.66-1.25) mg/dL Glucose (74-99) mg/dL POC Glucose (mg/dL) 266 H 106 H (75-99) mg/dL Total Creatine Kinase (55-170) U/L CK-MB (CK-2) (0.0-2.4) ng/mL Troponin I 0.060 H* (0.000-0.034) ng/mL 02/13/17 02/13/17 Range/Units 06:18 06:18 WBC 16.2 H (3.8-10.6) k/uL MCV 103.5 H (80.0-100.0) fL MCHC 28.8 L (31.0-37.0) g/dL RDW 16.7 H (11.5-15.5) % Neutrophils # 13.9 H (1.3-7.7) k/uL INR (<1.2) Potassium 5.9 H (3.5-5.1) mmol/L Chloride 108 H (98-107) mmol/L BUN 42 H (9-20) mg/dL Creatinine 1.82 H (0.66-1.25) mg/dL Glucose 122 H (74-99) mg/dL POC Glucose (mg/dL) (75-99) mg/dL Total Creatine Kinase (55-170) U/L CK-MB (CK-2) (0.0-2.4) ng/mL Troponin I (0.000-0.034) ng/mL Assessment and Plan Plan: #1 shortness of breath with exertion likely secondary to acute exacerbation of systolic heart failure with mild COPD exacerbation - Patient's BNP is elevated, has interstitial edema on chest x-ray likely in mild CHF state, status post one dose of IV Lasix 40 mg - Consult with cardiology appreciated. Lasix changed to 40 mg IV every 12 hours and continued on metolazone 2.5 mg daily - Hold spironolactone - Troponin slightly elevated, acute coronary syndrome ruled out by cardiology - Echo done in November 2016 suggestive of EF of 35%, nonischemic cardiomyopathy - EKG with T-wave abnormality, no ST changes, sinus rhythm with first-degree AV block - Continue telemetry overnight #2 COPD exacerbation - Patient was not wheezing on examination but has already received albuterol - Patient educated about tobacco cessation, nicotine patch while in the hospital - Respiratory cultures ordered, though infection of the unlikely - Status post Solu-Medrol, continue prednisone 40 mg by mouth daily - Continue incentive spirometry - Albuterol and Atrovent every 6 hours when necessary shortness of breath #3 hyperkalemia likely secondary to medication use - Patient continues to take Aldactone which was discontinued last time -It appears patient has it in a medication box which he does not know how to open or replace. #4 chronic kidney disease stage III creatinine is baseline stable #5 history of tobacco use Patient counseled on tobacco cessation, patient persists to continue despite counseling #6 nonischemic cardiomyopathy - Continue Coreg, Lasix, metolazone #7 chronic paroxysmal atrial fibrillation - Continue amiodarone and and requests #8 gout - Continue allopurinol 100 mg by mouth daily #9 hypothyroidism - TSH ordered patient currently not on any medication #10 dysphagia. Speech therapy ordered CODE STATUS full code Discharge plan: patient is homeless Impression and plan of care have been directed as dictated by the signing physician. Dayna Benitez nurse practitioner acting as scribe for signing physician.
[2017-02-13 16:39] LABS: Glucose,Whole Blood 164 mg/dL (75-99)
[2017-02-13 20:43] LABS: Glucose,Whole Blood 216 mg/dL (75-99)
[2017-02-13] MEDS: FUROSEMIDE 10 MG/ML 4 ML VIAL IV SCH (21:20)
[2017-02-14 05:40] LABS: Glucose,Whole Blood 59 mg/dL (75-99)
[2017-02-14 06:12] LABS: Glucose,Whole Blood 95 mg/dL (75-99)
[2017-02-14 06:25] LABS: Calcium 9.2 mg/dL (8.4-10.2); Potassium 5.2 mmol/L (3.5-5.1)
[2017-02-14] MEDS: INSULIN LISPRO (humaLOG) 300 UNIT/3 ML VIAL SQ SCH ×2 (06:43→12:16)
[2017-02-14] MEDS: CARVEDILOL 3.125 MG TAB PO SCH ×2 (06:46→17:05)
[2017-02-14] MEDS: glipiZIDE 5 MG TAB PO SCH ×2 (06:46→17:04)
[2017-02-14] MEDS: IPRATROPIUM-ALBUTEROL 3 ML NEB INHALATION SCH ×4 (08:04→19:42)
[2017-02-14] MEDS: APIXABAN 2.5 MG TABLET PO SCH ×2 (08:16→20:07)
[2017-02-14] MEDS: predniSONE 20 MG TAB PO SCH (08:17)
[2017-02-14] MEDS: METOLAZONE 2.5 MG TAB PO SCH (08:17)
[2017-02-14] MEDS: ALLOPURINOL 100 MG TAB PO SCH (08:17)
[2017-02-14] MEDS: FAMOTIDINE 20 MG TAB PO SCH (08:17)
[2017-02-14] MEDS: FUROSEMIDE 10 MG/ML 4 ML VIAL IV SCH ×2 (08:17→20:08)
[2017-02-14] MEDS: LORATADINE 10 MG TAB PO SCH (08:17)
[2017-02-14] MEDS: guaiFENesin 600 MG TABLET.ER PO SCH ×2 (08:17→20:07)
[2017-02-14] MEDS: NICOTINE 14MG/24HR PATCH TRANSDERM SCH (08:17)
[2017-02-14] MEDS: AMIODARONE 200 MG TAB PO SCH (08:17)
[2017-02-14] MEDS: BENZONATATE 100 MG CAP PO SCH ×3 (12:15→20:08)
[2017-02-14 12:21] LABS: Glucose,Whole Blood 139 mg/dL (75-99)
--- NOTE | 2017-02-14 14:55 | P.PN ---
Subjective Progress Note Date: 02/14/17 71 years old gentleman with past medical history of congestive heart failure, nonischemic cardiomyopathy with ejection fraction last reported 35% status post AICD placement, chronic kidney disease, COPD, atrial fibrillation paroxysmal, history of stroke, hyperlipidemia hypertension, hypothyroidism, history of PR presents with shortness of breath on exertion associated with chest tightness that comes and goes. Patient states that symptoms started one month ago with cough with phlegm production. Patient went to her primary care physician who prescribed Robitussin which helped with the cough. Patient stated that shortness of breath has worsened in the past few weeks. Patient endorses left flank pain which is chronic, CT abdomen was done in the ER which was negative for any acute abnormality. Pancreatic atrophy was seen. EKG suggestive of some T-wave abnormality otherwise patient in sinus rhythm with first-degree AV block. Troponin is elevated at 0.067, creatinine is baseline of 1.8. BNP slightly elevated 3600. Potassium is elevated at 5.6. Patient was recommended not to take Aldactone in the last hospital visit in December 2016. It appears patient is homeless and has difficulty managing his medication and was taking Aldactone regardless. Patient received 1 treatment of nebulization and feels better. Lasix 40 mg IV 1 dose given. Patient will be observed overnight, troponin will be trended. Patient will be started on home regimen of Lasix 40 mg twice a day along with Zaroxolyn. Aldactone will be held. Repeat BMP in a.m. Continue telemetry overnight. 02/13: White count is at 16.2. Potassium is 5.9 with BUN 42 and creatinine 1.82. Repeat troponins were 0.058 and 0.067. Sputum culture remains on collected. Patient is complaining of difficulty swallowing both liquids and solid food and speech therapy has been added. Patient was seen by cardiology for elevated troponins and acute coronary syndrome has been ruled out. Dr. Peña has placed him on IV Lasix 40 mg every [address] Peña would like to start him on Entresto but there is concern whether he will be able to afford this due to his homeless status. on site manager has been updated and will check and options. At this point, it does not seem to be an option for him. Anticipate discharge tomorrow. 02/14: Case management and social worker psychiatric working with the patient regarding his financial issues. Patient has not been able to obtain some of his home medications as he owes money at [facility]. Cardiology is to give the patient overnight and they are working on authorization for [employer]. He has been evaluated by speech therapy and there are cyst under his tongue. He had no difficulty with swallowing. Outpatient ENT appointment will be recommended. Objective - Vital Signs Vital signs: Vital Signs Temp 96.0 F L 02/14/17 07:36 Pulse 76 02/14/17 11:44 Resp 18 02/14/17 12:00 BP 131/75 02/14/17 07:36 Pulse Ox 95 02/14/17 12:00 Intake & Output 02/13/17 02/14/17 02/14/17 18:59 06:59 18:59 Intake Total 360 Output Total 200 900 Balance 360 -200 -900 Weight 111.6 kg Intake: Oral 360 Output: Urine 200 900 Other: # Voids 1 500 1 - Exam General appearance: cooperative, no acute distress, obese - EENT Eyes: anicteric sclerae, PERRLA, normal appearance ENT: hearing grossly normal - Neck Neck: no lymphadenopathy, normal ROM, no other, no rigidity, no stridor, no thyromegaly - Respiratory Respiratory: bilateral: CTA, negative: diminished, dullness, rales, rhonchi - Cardiovascular Rhythm: regular Heart sounds: normal: S1, S2 Abnormal Heart Sounds: no systolic murmur, no diastolic murmur, no rub, no S3 Gallop, no S4 Gallop, no click, no other - Gastrointestinal General gastrointestinal: normal bowel sounds, soft - Integumentary Integumentary: no rash - Neurologic Neurologic: CNII-XII intact - Musculoskeletal Musculoskeletal: gait normal, strength equal bilaterally - Psychiatric Psychiatric: A&O x's 3, appropriate affect - Labs CBC & Chem 7: 02/13/17 06:18 02/14/17 05:45 Labs: Abnormal Lab Results - Last 24 Hours (Table) 02/13/17 02/13/17 02/14/17 Range/Units 16:37 20:41 05:38 Potassium (3.5-5.1) mmol/L BUN (9-20) mg/dL Creatinine (0.66-1.25) mg/dL Glucose (74-99) mg/dL POC Glucose (mg/dL) 164 H 216 H 59 L (75-99) mg/dL 02/14/17 02/14/17 Range/Units 05:45 12:01 Potassium 5.2 H (3.5-5.1) mmol/L BUN 49 H (9-20) mg/dL Creatinine 1.98 H (0.66-1.25) mg/dL Glucose 53 L (74-99) mg/dL POC Glucose (mg/dL) 139 H (75-99) mg/dL Assessment and Plan Plan: #1 shortness of breath with exertion likely secondary to acute exacerbation of systolic heart failure with mild COPD exacerbation - Patient's BNP is elevated, has interstitial edema on chest x-ray likely in mild CHF state, status post one dose of IV Lasix 40 mg - Consult with cardiology appreciated. Lasix changed to 40 mg IV every 12 hours and continued on metolazone 2.5 mg daily - Hold spironolactone - Troponin slightly elevated, acute coronary syndrome ruled out by cardiology - Echo done in November 2016 suggestive of EF of 35%, nonischemic cardiomyopathy - EKG with T-wave abnormality, no ST changes, sinus rhythm with first-degree AV block - Continue telemetry overnight #2 COPD exacerbation - Patient was not wheezing on examination but has already received albuterol - Patient educated about tobacco cessation, nicotine patch while in the hospital - Respiratory cultures ordered, though infection of the unlikely - Status post Solu-Medrol, continue prednisone 40 mg by mouth daily - Continue incentive spirometry - Albuterol and Atrovent every 6 hours when necessary shortness of breath #3 hyperkalemia likely secondary to medication use - Patient continues to take Aldactone which was discontinued last time -It appears patient has it in a medication box which he does not know how to open or replace. #4 chronic kidney disease stage III creatinine is baseline stable #5 history of tobacco use Patient counseled on tobacco cessation, patient persists to continue despite counseling #6 nonischemic cardiomyopathy - Continue Coreg, Lasix, metolazone #7 chronic paroxysmal atrial fibrillation - Continue amiodarone and and requests #8 gout - Continue allopurinol 100 mg by mouth daily #9 hypothyroidism - TSH ordered patient currently not on any medication #10 dysphagia. Speech therapy recommended mentations for outpatient ENT for cyst under the tongue. No deficits found with swallow evaluation. CODE STATUS full code Discharge plan: patient is homeless Impression and plan of care have been directed as dictated by the signing physician. Danya Benitez nurse practitioner acting as scribe for signing physician.
--- NOTE | 2017-02-14 15:16 | P.PN ---
Subjective Progress Note Date: 02/14/17 Principal diagnosis: Shortness of breath This is a 71-year-old -[place] gentleman who follows with Dr. VC Scott in the office. He has history of nonischemic cardiomyopathy, status post AICD, paroxysmal atrial fibrillation, chronic kidney disease, hypothyroidism is admitted to the hospital with symptoms of fatigue and worsening shortness of breath. Chest x-ray did show pulmonary vascular congestion and his BNP came back to be around 3000. He did have some mild troponin abnormality, not consistent with acute coronary syndrome. Patient was initiated on IV Lasix. We did want to start the patient on an interest oh, we are currently working on that in the office to make sure that the patient has coverage, as is quite frequently homeless, currently living with a friend in [facility]. Patient did diuresis overall well on IV Lasix. Creatinine today is 1.9, potassium 5.2. He continues to be on IV Lasix which we will continue for another 24 hours. Objective - Vital Signs Vital signs: Vital Signs Temp 96.0 F L 02/14/17 07:36 Pulse 76 02/14/17 11:44 Resp 18 02/14/17 12:00 BP 131/75 02/14/17 07:36 Pulse Ox 95 02/14/17 12:00 Intake & Output 02/13/17 02/14/17 02/14/17 18:59 06:59 18:59 Intake Total 360 Output Total 200 900 Balance 360 -200 -900 Weight 111.6 kg Intake: Oral 360 Output: Urine 200 900 Other: # Voids 1 500 1 - Exam PHYSICAL EXAMINATION: HEENT: Head is atraumatic, normocephalic. Pupils equal, round. Neck is supple. There is no elevated jugular venous pressure. HEART EXAMINATION: Heart S1, S2 normal. No murmur or gallop heard. CHEST EXAMINATION: Lungs are clear to auscultation and precussion. No chest wall tenderness is noted on palpation or with deep breathing. ABDOMEN: Soft, nontender. Bowel sounds are heard. No organomegaly noted. EXTREMITIES: 2+ peripheral pulses with no evidence of peripheral edema and no calf tenderness noted. NEUROLOGIC patient is awake, alert and oriented -3. . - Labs CBC & Chem 7: 02/13/17 06:18 02/14/17 05:45 Labs: Abnormal Lab Results - Last 24 Hours (Table) 02/13/17 02/13/17 02/14/17 Range/Units 16:37 20:41 05:38 Potassium (3.5-5.1) mmol/L BUN (9-20) mg/dL Creatinine (0.66-1.25) mg/dL Glucose (74-99) mg/dL POC Glucose (mg/dL) 164 H 216 H 59 L (75-99) mg/dL 02/14/17 02/14/17 Range/Units 05:45 12:01 Potassium 5.2 H (3.5-5.1) mmol/L BUN 49 H (9-20) mg/dL Creatinine 1.98 H (0.66-1.25) mg/dL Glucose 53 L (74-99) mg/dL POC Glucose (mg/dL) 139 H (75-99) mg/dL Assessment and Plan (1) AF (paroxysmal atrial fibrillation) Current Visit: No Status: Acute Code(s): I48.0 - PAROXYSMAL ATRIAL FIBRILLATION SNOMED Code(s): 958985181 (2) AICD (automatic cardioverter/defibrillator) present Current Visit: No Status: Acute Code(s): Z95.810 - PRESENCE OF AUTOMATIC ( IMPLANTABLE) CARDIAC DEFIBRILLATOR SNOMED Code(s): 420086364 (3) COPD with exacerbation Current Visit: No Status: Acute Code(s): J44.1 - CHRONIC OBSTRUCTIVE PULMONARY DISEASE W (ACUTE) EXACERBATION SNOMED Code(s): 790844275407817 (4) Chronic renal failure Current Visit: No Status: Acute Code(s): N18.9 - CHRONIC KIDNEY DISEASE, UNSPECIFIED SNOMED Code(s): 70692870 (5) Elevated troponin Current Visit: No Status: Acute Code(s): R74.8 - ABNORMAL LEVELS OF OTHER SERUM ENZYMES SNOMED Code(s): 271017202 (6) History of CVA (cerebrovascular accident) Current Visit: No Status: Acute Code(s): Z86.73 - PRSNL HX OF TIA (TIA), AND CEREB INFRC W/O RESID DEFICITS SNOMED Code(s): 419170307 (7) NICM (nonischemic cardiomyopathy) Current Visit: No Status: Acute Code(s): I42.9 - CARDIOMYOPATHY, UNSPECIFIED SNOMED Code(s): 10871566 (8) Systolic and diastolic CHF, acute on chronic Current Visit: No Status: Acute Code(s): I50.43 - ACUTE ON CHRONIC COMBINED SYSTOLIC AND DIASTOLIC HRT FAIL SNOMED Code(s): 704451128859413 Plan: Cardiology's perspective, we will continue current dose of IV Lasix, changed over to oral diuretics in the morning. We will also follow-up on whether or not the patient will get contrast without charge. Possible discharge home in 24 hours if stable. DNP note has been reviewed, I agree with a documented findings and plan of care. Patient was seen and examined.
[2017-02-14] MEDS: INSULIN ASPART 100 UNIT/ML 1 ML 10 ML VIAL SQ SCH ×2 (17:06→22:54)
[2017-02-14 17:18] LABS: Glucose,Whole Blood 212 mg/dL (75-99)
[2017-02-14 20:53] LABS: Glucose,Whole Blood 176 mg/dL (75-99)
[2017-02-15 06:11] LABS: Glucose,Whole Blood 139 mg/dL (75-99)
[2017-02-15] MEDS: glipiZIDE 5 MG TAB PO SCH (06:24)
[2017-02-15] MEDS: CARVEDILOL 3.125 MG TAB PO SCH (06:25)
[2017-02-15] MEDS: INSULIN ASPART 100 UNIT/ML 1 ML 10 ML VIAL SQ SCH ×2 (06:33→12:33)
[2017-02-15] MEDS: IPRATROPIUM-ALBUTEROL 3 ML NEB INHALATION SCH ×2 (08:14→12:00)
[2017-02-15 09:16] LABS: Calcium 9.1 mg/dL (8.4-10.2); Potassium 4.9 mmol/L (3.5-5.1)
[2017-02-15] MEDS: BENZONATATE 100 MG CAP PO SCH (09:27)
[2017-02-15] MEDS: guaiFENesin 600 MG TABLET.ER PO SCH (09:27)
[2017-02-15] MEDS: AMIODARONE 200 MG TAB PO SCH (09:28)
[2017-02-15] MEDS: FAMOTIDINE 20 MG TAB PO SCH (09:28)
[2017-02-15] MEDS: APIXABAN 2.5 MG TABLET PO SCH (09:28)
[2017-02-15] MEDS: ALLOPURINOL 100 MG TAB PO SCH (09:29)
[2017-02-15] MEDS: METOLAZONE 2.5 MG TAB PO SCH (09:30)
[2017-02-15] MEDS: LORATADINE 10 MG TAB PO SCH (09:30)
[2017-02-15] MEDS: NICOTINE 14MG/24HR PATCH TRANSDERM SCH (09:42)
[2017-02-15] MEDS: predniSONE 20 MG TAB PO SCH (09:47)
[2017-02-15] MEDS: FUROSEMIDE 10 MG/ML 4 ML VIAL IV SCH (09:47)
[2017-02-15] MEDS ORDERED: BENZONATATE 100 MG CAP PO SCH (11:15)
[2017-02-15 11:38] LABS: Glucose,Whole Blood 129 mg/dL (75-99)
--- NOTE | 2017-02-15 12:26 | P.DS ---
Providers Date of admission: 02/13/17 11:37 Expected date of discharge: 02/15/17 Attending physician: Ok Galvan MD Consults: 02/13/17 10:57 Consult Physician Routine Consulting Provider: William Peña Consult Reason/Comments: elevated troponin Do you want consulting provider notified?: Yes Primary care physician: [facility] Course: 71 years old gentleman with past medical history of congestive heart failure, nonischemic cardiomyopathy with ejection fraction last reported 35% status post AICD placement, chronic kidney disease, COPD, atrial fibrillation paroxysmal, history of stroke, hyperlipidemia hypertension, hypothyroidism, history of MO presents with shortness of breath on exertion associated with chest tightness that comes and goes. Patient states that symptoms started one month ago with cough with phlegm production. Patient went to her primary care physician who prescribed Robitussin which helped with the cough. Patient stated that shortness of breath has worsened in the past few weeks. Patient endorses left flank pain which is chronic, CT abdomen was done in the ER which was negative for any acute abnormality. Pancreatic atrophy was seen. EKG suggestive of some T-wave abnormality otherwise patient in sinus rhythm with first-degree AV block. Troponin is elevated at 0.067, creatinine is baseline of 1.8. BNP slightly elevated 3600. Potassium is elevated at 5.6. Patient was recommended not to take Aldactone in the last hospital visit in December 2016. It appears patient is homeless and has difficulty managing his medication and was taking Aldactone regardless. Patient received 1 treatment of nebulization and feels better. Lasix 40 mg IV 1 dose given. Patient will be observed overnight, troponin will be trended. Patient will be started on home regimen of Lasix 40 mg twice a day along with Zaroxolyn. Aldactone will be held. Repeat BMP in a.m. Continue telemetry overnight. 02/13: White count is at 16.2. Potassium is 5.9 with BUN 42 and creatinine 1.82. Repeat troponins were 0.058 and 0.067. Sputum culture remains on collected. Patient is complaining of difficulty swallowing both liquids and solid food and speech therapy has been added. Patient was seen by cardiology for elevated troponins and acute coronary syndrome has been ruled out. Dr. Peña has placed him on IV Lasix 40 mg every [address] Peña would like to start him on Entresto but there is concern whether he will be able to afford this due to his homeless status. manager zone has been updated and will check and options. At this point, it does not seem to be an option for him. Anticipate discharge tomorrow. 02/14: Case management and director of social services working with the patient regarding his financial issues. Patient has not been able to obtain some of his home medications as he owes money at [facility]. Cardiology is to give the patient overnight and they are working on authorization for Entresto. He has been evaluated by speech therapy and there are cyst under his tongue. He had no difficulty with swallowing. Outpatient ENT appointment will be recommended. 02/15:Patient is unable to receive Entresto per Cardiology. manager zone to assist with filling patient's new medications and will set up home care. Prescriptions have been sent to [facility] pharmacy. He is to receive a dose of Tessalon Perles prior to discharge. Patient will be discharged today in stable condition. Discharge Diagnoses: #1 shortness of breath with exertion likely secondary to acute exacerbation of systolic heart failure with mild COPD exacerbation #2 COPD exacerbation #3 hyperkalemia likely secondary to medication use #4 chronic kidney disease stage III creatinine is baseline stable #5 history of tobacco use - Patient counseled on tobacco cessation #6 nonischemic cardiomyopathy #7 chronic paroxysmal atrial fibrillation #8 gout, unspecified #9 hypothyroidism #10 cyst under the tongue. No deficits found with swallow evaluation. Discharge plan: patient is homeless Impression and plan of care have been directed as dictated by the signing physician. Dayna Benitez nurse practitioner acting as scribe for signing physician. Patient Condition at Discharge: Good Plan - Discharge Summary Discharge Rx Participant: No New Discharge Prescriptions: New Albuterol Inhaler [Ventolin Hfa Inhaler] 2 puff INHALATION Q6HR PRN #1 inhaler PRN Reason: Wheezing guaiFENesin [Mucinex] 600 mg PO Q12HR tablet.er predniSONE 10 mg PO DAILY #20 tab Benzonatate [Tessalon Perles] 100 mg PO TID #30 cap Cefuroxime [Ceftin] 250 mg PO BID #14 tablet Continue Amiodarone HCl [Pacerone] 200 mg PO DAILY Carvedilol [Coreg] 3.125 mg PO BID-W/MEALS Apixaban [Eliquis] 2.5 mg PO BID Allopurinol [Zyloprim] 100 mg PO DAILY glipiZIDE [Glucotrol] 5 mg PO AC-BID Metolazone [Zaroxolyn] 2.5 mg PO DAILY Furosemide [Lasix] 40 mg PO BID@0900,1600 #60 tab Nitroglycerin Sl Tabs [Nitrostat] 0.4 mg SUBLINGUAL Q5M PRN PRN Reason: Chest Pain Loratadine [Claritin] 10 mg PO DAILY Discontinued Spironolactone [Aldactone] 25 mg PO TID Discharge Medication List Amiodarone HCl [Pacerone] 200 mg PO DAILY 12/28/15 [History] Carvedilol [Coreg] 3.125 mg PO BID-W/MEALS 12/28/15 [History] Apixaban [Eliquis] 2.5 mg PO BID 11/20/16 [History] Allopurinol [Zyloprim] 100 mg PO DAILY 12/13/16 [History] Metolazone [Zaroxolyn] 2.5 mg PO DAILY 12/13/16 [History] glipiZIDE [Glucotrol] 5 mg PO AC-BID 12/13/16 [History] Furosemide [Lasix] 40 mg PO BID@0900,1600 #60 tab 12/14/16 [Rx] Loratadine [Claritin] 10 mg PO DAILY 02/12/17 [History] Nitroglycerin Sl Tabs [Nitrostat] 0.4 mg SUBLINGUAL Q5M PRN 02/12/17 [History] Albuterol Inhaler [Ventolin Hfa Inhaler] 2 puff INHALATION Q6HR PRN #1 inhaler 02/13/17 [Rx] guaiFENesin [Mucinex] 600 mg PO Q12HR tablet.er 02/13/17 [Rx] predniSONE 10 mg PO DAILY #20 tab 02/13/17 [Rx] Benzonatate [Tessalon Perles] 100 mg PO TID #30 cap 02/14/17 [Rx] Cefuroxime [Ceftin] 250 mg PO BID #14 tablet 02/15/17 [Rx] Follow up Appointment(s)/Referral(s): Luis Fernando Fan MD [Primary Care Provider] - 1 Week () Reinier Narvaez DO [Doctor of Osteopathic Medicine] - 02/19/17 1:00 pm (cysts under tongue Please arrive thirty minutes early and bring photo ID and insurance card) Raul Scott MD [STAFF PHYSICIAN] - 1 Week Patient Instructions/Handouts: Heart Failure (DC), How to Stop Smoking (DC), COPD (Chronic Obstructive Pulmonary Disease) (DC) Activity/Diet/Wound Care/Special Instructions: prefers morning appointments Discharge Disposition: HOME SELF-CARE
[2017-02-15 12:28] VITALS: TEMP 97.7
[2017-02-15 12:30] VITALS: BP 137/75; PULSE 67; RESP 17
--- NOTE | 2017-02-15 14:52 | P.PN ---
Subjective Progress Note Date: 02/15/17 Principal diagnosis: Shortness of breath This is a 71-year-old -[place] gentleman who follows with Dr. VC Scott in the office. He has history of nonischemic cardiomyopathy, status post AICD, paroxysmal atrial fibrillation, chronic kidney disease, hypothyroidism is admitted to the hospital with symptoms of fatigue and worsening shortness of breath. Chest x-ray did show pulmonary vascular congestion and his BNP came back to be around 3000. He did have some mild troponin abnormality, not consistent with acute coronary syndrome. Patient was initiated on IV Lasix. We did want to start the patient on an interest oh, we are currently working on that in the office to make sure that the patient has coverage, as is quite frequently homeless, currently living with a friend in [facility]. Patient did diuresis overall well on IV Lasix. Creatinine today is 1.9, potassium 5.2. He continues to be on IV Lasix which we will continue for another 24 hours. 02/15/2017 Patient seen and examined this morning, feeling well, complaining of coughing and mild sputum otherwise he's doing well. Hemodynamically stable. Creatinine on admission 1.8, 2.1 this morning. Objective - Vital Signs Vital signs: Vital Signs Temp 97.7 F 02/15/17 08:00 Pulse 72 02/15/17 12:12 Resp 17 02/15/17 12:00 BP 137/75 02/15/17 12:00 Pulse Ox 94 L 02/15/17 12:00 Intake & Output 02/14/17 02/15/17 02/15/17 18:59 06:59 18:59 Intake Total 120 1200 Output Total 900 1700 300 Balance -780 -1700 900 Weight 110.9 kg Intake: Oral 120 1200 Output: Urine 900 1700 300 Other: Voiding Method Urinal Urinal # Voids 0 1 - Exam PHYSICAL EXAMINATION: HEENT: Head is atraumatic, normocephalic. Pupils equal, round. Neck is supple. There is no elevated jugular venous pressure. HEART EXAMINATION: Heart S1, S2 normal. No murmur or gallop heard. CHEST EXAMINATION: Lungs are clear to auscultation and precussion. No chest wall tenderness is noted on palpation or with deep breathing. ABDOMEN: Soft, nontender. Bowel sounds are heard. No organomegaly noted. EXTREMITIES: 2+ peripheral pulses with no evidence of peripheral edema and no calf tenderness noted. NEUROLOGIC patient is awake, alert and oriented -3. . - Labs CBC & Chem 7: 02/13/17 06:18 02/15/17 08:20 Labs: Abnormal Lab Results - Last 24 Hours (Table) 02/14/17 02/14/17 02/15/17 Range/Units 16:36 20:50 06:09 Carbon Dioxide (22-30) mmol/L BUN (9-20) mg/dL Creatinine (0.66-1.25) mg/dL Glucose (74-99) mg/dL POC Glucose (mg/dL) 212 H 176 H 139 H (75-99) mg/dL 02/15/17 02/15/17 Range/Units 08:20 11:35 Carbon Dioxide 31 H (22-30) mmol/L BUN 58 H (9-20) mg/dL Creatinine 2.17 H (0.66-1.25) mg/dL Glucose 109 H (74-99) mg/dL POC Glucose (mg/dL) 129 H (75-99) mg/dL Assessment and Plan (1) AF (paroxysmal atrial fibrillation) Current Visit: No Status: Acute Code(s): I48.0 - PAROXYSMAL ATRIAL FIBRILLATION SNOMED Code(s): 863070319 (2) AICD (automatic cardioverter/defibrillator) present Current Visit: No Status: Acute Code(s): Z95.810 - PRESENCE OF AUTOMATIC ( IMPLANTABLE) CARDIAC DEFIBRILLATOR SNOMED Code(s): 694073452 (3) COPD with exacerbation Current Visit: No Status: Acute Code(s): J44.1 - CHRONIC OBSTRUCTIVE PULMONARY DISEASE W (ACUTE) EXACERBATION SNOMED Code(s): 558125838935542 (4) Chronic renal failure Current Visit: No Status: Acute Code(s): N18.9 - CHRONIC KIDNEY DISEASE, UNSPECIFIED SNOMED Code(s): 28954106 (5) Elevated troponin Current Visit: No Status: Acute Code(s): R74.8 - ABNORMAL LEVELS OF OTHER SERUM ENZYMES SNOMED Code(s): 586204440 (6) History of CVA (cerebrovascular accident) Current Visit: No Status: Acute Code(s): Z86.73 - PRSNL HX OF TIA (TIA), AND CEREB INFRC W/O RESID DEFICITS SNOMED Code(s): 737413176 (7) NICM (nonischemic cardiomyopathy) Current Visit: No Status: Acute Code(s): I42.9 - CARDIOMYOPATHY, UNSPECIFIED SNOMED Code(s): 46973445 (8) Systolic and diastolic CHF, acute on chronic Current Visit: No Status: Acute Code(s): I50.43 - ACUTE ON CHRONIC COMBINED SYSTOLIC AND DIASTOLIC HRT FAIL SNOMED Code(s): 578848726562583 Plan: Cardiology's perspective, patient may be able to be discharged once cleared by the primary. He has been encouraged to follow-up in the office with Dr. VC Scott within this one week. Medications have been provided to the patient. DNP note has been reviewed, I agree with a documented findings and plan of care. Patient was seen and examined.
== END 2017-02-15 14:58 | disposition home or self-care (01) | DRG 291 ==
LOC: EC 10:24 → 6SEL 14:01 → INTOOBSV 14:01 → 6SEL 22:33 → OBSVTOIN 02-13 11:37
PROVIDERS: ADMIT Internal Medicine; ATTEND Internal Medicine
DX: I13.0 Hypertensive heart and chronic kidney disease with heart failure and stage 1 through stage 4 chronic kidney disease, or unspecified chronic kidney disease (principal); I50.43 Acute on chronic combined systolic (congestive) and diastolic (congestive) heart failure; I27.20 Pulmonary hypertension, unspecified; I42.8 Other cardiomyopathies; J44.1 Chronic obstructive pulmonary disease with (acute) exacerbation; E87.5 Hyperkalemia; R13.10 Dysphagia, unspecified; K86.89 Other specified diseases of pancreas; E03.9 Hypothyroidism, unspecified; E78.5 Hyperlipidemia, unspecified; T50.905A Adverse effect of unspecified drugs, medicaments and biological substances, initial encounter; F17.200 Nicotine dependence, unspecified, uncomplicated; I25.2 Old myocardial infarction; I44.0 Atrioventricular block, first degree; I48.0 Paroxysmal atrial fibrillation; I48.2 Chronic atrial fibrillation; K21.9 Gastro-esophageal reflux disease without esophagitis; M10.9 Gout, unspecified; N18.3 Chronic kidney disease, stage 3 (moderate); Z59.0 Homelessness; Z79.01 Long term (current) use of anticoagulants; Z82.49 Family history of ischemic heart disease and other diseases of the circulatory system; Z91.14 Patient's other noncompliance with medication regimen; Z95.810 Presence of automatic (implantable) cardiac defibrillator; Z84.1 Family history of disorders of kidney and ureter; K14.8 Other diseases of tongue; Z71.6 Tobacco abuse counseling
CPT/HCPCS: 36415; 71020; 74176; 80048; 80053; 82550; 82553; 83690; 83735; 83880; 84443; 84484; 85025; 85610; 85730; 87070; 87205; 93005; 94640; 94760; 96374; 96375; 99285